=== PATIENT | female | born 1990 | race Caucasian/White ===

== ENCOUNTER 2019-12-26 10:17 | Outpatient (REF) | payer OTHER, SELFPAY ==
[2019-12-26 11:55] LABS: MANUAL DIFF FLAG NO
[2019-12-26 12:09] LABS: Basophils Percent Auto 0.5 % (0-2); Eosinophils Absolute Auto 0.3 X10*3/uL (0.0-0.4); Eosinophils Percent Auto 2.9 % (0-4); Hematocrit 42.3 % (37-47); Hemoglobin 13.1 g/dl (12.0-16.0); Imm Gran Abs Auto 0.04 X10*3/uL (0.00-0.03); Imm Gran Pct Auto 0.5 % (0.0-0.4); Lymphocytes Absolute Auto 2.7 X10*3/uL (1.2-4.9); Lymphocytes Percent Auto 30.5 % (20-40); Mean Corpuscular Hemoglobin 26.8 pg (27.0-33.0); Mean Corpuscular Volume 86.5 fL (80-98); Mean Platelet Volume 12.2 fL (9.4-12.3); Monocytes Absolute Auto 0.7 X10*3/uL (0.1-1.2); Monocytes Percent Auto 7.7 % (2-11); Neutrophils Absolute Auto 5.1 X10*3/uL (2.0-8.3); Neutrophils Percent Auto 57.9 % (45-73); Platelet Count 263 X10*3/uL (160-400); Red Blood Count 4.89 X10*6/uL (4.20-5.50); Red Cell Distribution Width 13.3 % (11.0-16.0); White Blood Count 8.7 X10*3/uL (4.8-10.8)
[2019-12-26 12:28] LABS: Estimated Average Glucose 105 mg/dL; Hemoglobin A1c % 5.3 %
[2019-12-26 12:46] LABS: Anion Gap 13 (12-20); Blood Urea Nitrogen 11 mg/dL (9-16); Calcium 8.9 mg/dL (8.4-10.2); Carbon Dioxide 26 mmol/L (22-29); Chloride 105 mmol/L (96-108); Cholesterol 145 mg/dL; Estimated Glomerular Filt Rate > 60; Glucose Fasting 97 mg/dL (60-99); HDL Cholesterol 44 mg/dL; LDL Cholesterol Calculated 68 mg/dl; Potassium 4.5 mmol/l (3.3-5.1); Sodium 139 mmol/L (135-145); Triglycerides 169 mg/dL
== END 2019-12-26 10:18 | disposition home or self-care (01) ==
LOC: HO.LAB 10:17
PROVIDERS: Visit Provider Nurse Practitioner Family
DX: Z00.00 Encounter for general adult medical examination without abnormal findings (principal)
CPT/HCPCS: 36415; 80048; 80061; 83036; 85025

== ENCOUNTER 2020-01-03 14:56 | Outpatient (REF) | payer OTHER, SELFPAY | END 2020-01-03 14:57 | disposition home or self-care (01) | LOC: HO.LAB 14:56 | PROVIDERS: Visit Provider Internal Medicine | DX: Z20.828 Contact with and (suspected) exposure to other viral communicable diseases (principal) | CPT/HCPCS: C9803; U0003 ==

== ENCOUNTER 2020-02-21 16:32 | Outpatient (REF) | payer OTHER, SELFPAY | END 2020-02-21 16:33 | disposition home or self-care (01) | LOC: HO.LAB 16:32 | PROVIDERS: PCP Nurse Practitioner Family; Visit Provider Internal Medicine | DX: Z20.828 Contact with and (suspected) exposure to other viral communicable diseases (principal) | CPT/HCPCS: C9803; U0003 ==

== ENCOUNTER 2020-04-04 12:32 | Outpatient (REF) | payer OTHER, SELFPAY | END 2020-04-04 12:33 | disposition home or self-care (01) | LOC: HO.LAB 12:32 | PROVIDERS: Visit Provider Internal Medicine | DX: Z20.822 Contact with and (suspected) exposure to COVID-19 (principal) | CPT/HCPCS: 36415; C9803; U0003; U0005 ==

== ENCOUNTER 2020-04-12 05:41 | Inpatient (IN) | payer OTHER, SELFPAY ==
[2020-04-12] VITALS (11 sets, daily range): BP systolic 100–139; BP diastolic 56–89; PULSE 95–114; RESP 17–91; TEMP 36.8–37.2; O2SAT 87–95; BMI 54.9
--- NOTE | ~2020-04-12 | XR_ITS ---
EXAMINATION: XR CHEST CLINICAL INFORMATION: Shortness of breath COMPARISON: 08/24/2019 TECHNIQUE: Frontal view of the chest was obtained. FINDINGS: Lung volumes are low. No consolidation, edema, or effusion. Bronchial wall thickening noted. No pneumothorax. The cardiomediastinal silhouette is within normal limits. XR/XR chest 1V IMPRESSION: No consolidation. Bronchial wall thickening can be seen with a small airways process such as asthma or atypical/viral infection.
--- NOTE | ~2020-04-12 | CT_ITS ---
EXAMINATION: CT ANGIOGRAM OF THE CHEST WITH AND WITHOUT CONTRAST (CT PULMONARY ANGIOGRAM FOR PE) CLINICAL INFORMATION: Reason for Exam dyspnea, hemoptysis, on OCPS elevated ddimer COMPARISON: Chest x-ray of same day TECHNIQUE: Prior to contrast administration, noncontrast localization images were obtained. Subsequently, multidetector volumetric imaging was performed from the thoracic inlet to below the diaphragms following the administration of 85 mL Omnipaque 350 intravenous contrast. No contrast reaction reported Sagittal, coronal, and MIP oblique sagittal reformatted images were obtained on the CT workstation, uploaded to PACS, and reviewed. This CT examination was performed using dose optimization techniques as appropriate, variously including the following: *Automated exposure control *Adjustment of mA and/or kV according to patient size (this includes techniques or standardized protocols for targeted exams where dose is matched to indication/reason for exam; i.e. extremities or head) *Use of iterative reconstruction technique Total exam dose-length product 591 mGy-cm FINDINGS: QUALITY OF STUDY/CONTRAST BOLUS: Satisfactory. Suboptimal study related to breathing artifact. PULMONARY ARTERIES: No definite central or segmental pulmonary emboli. THORACIC AORTA: No aneurysm or dissection. LUNG: There is diffuse multilobar groundglass disease present as well as bibasilar airspace disease. The basilar airspace disease may be related to atelectasis or possibly pneumonitis. The groundglass opacities may be related to diffuse interstitial pneumonitis such as Covid disease or possible pulmonary edema of cardiogenic or noncardiogenic etiology. PLEURA: No pleural effusion or pneumothorax. MEDIASTINUM: Thyroid gland unremarkable. Heart normal size. No pericardial effusion. No mediastinal lymphadenopathy appreciated. There appears to be mild bilateral hilar lymphadenopathy. No evidence of septal bowing or right heart strain. CHEST WALL/AXILLA: No axillary or internal mammary lymphadenopathy. OSSEOUS STRUCTURES: No acute or suspicious osseous abnormality. UPPER ABDOMEN: Unremarkable. No reflux of contrast into the hepatic veins to suggest elevated right heart pressures. CT/CT angio chest PE protocol IMPRESSION: No evidence of acute pulmonary artery embolus. No evidence of thoracic aortic aneurysm or dissection. Diffuse multilevel lobar interstitial disease with bibasilar airspace disease. Findings may be seen with Covid disease or other interstitial pneumonitis. Also within the differential diagnosis would be pulmonary edema of cardiogenic or noncardiogenic etiology. Mild bilateral hilar lymphadenopathy. VTE: negative
--- NOTE | 2020-04-12 06:07 | PC.NURSE ---
CXR at bedside. Pt ambulating to and from the bathroom to provide urine sample.
[2020-04-12 06:22] LABS: Hematocrit 43.8 % (37-47); Hemoglobin 13.8 g/dl (12.0-16.0); Imm Gran Abs Auto 0.01 X10*3/uL (0.00-0.03); Imm Gran Pct Auto 0.3 % (0.0-0.4); Lymphocytes Absolute Auto 1.3 X10*3/uL (1.2-4.9); Lymphocytes Percent Auto 42.2 % (20-40); Mean Corpuscular HGB Conc 31.5 g/dl (31.0-35.0); Mean Corpuscular Hemoglobin 26.8 pg (27.0-33.0); Mean Corpuscular Volume 85.2 fL (80-98); Mean Platelet Volume 11.9 fL (9.4-12.3); Monocytes Absolute Auto 0.3 X10*3/uL (0.1-1.2); Monocytes Percent Auto 10.1 % (2-11); Neutrophils Absolute Auto 1.4 X10*3/uL (2.0-8.3); Neutrophils Percent Auto 47.4 % (45-73); Platelet Count 144 X10*3/uL (160-400); Red Blood Count 5.14 X10*6/uL (4.20-5.50); Red Cell Distribution Width 13.3 % (11.0-16.0)
[2020-04-12 06:23] LABS: MANUAL DIFF FLAG NO
[2020-04-12 06:24] LABS: Appearance Urine HAZY; Color Urine AMBER; Glucose Urine UA NEG (NEG); Leukocyte Esterase Urine NEG (NEG); Nitrite Urine NEG (NEG); Specific Gravity - Urine 1.025 (1.005-1.025); Urine Blood TRACE (NEG); Urine Ketones NEG (NEG); Urine Protein 1+ MG/DL (NEG-TRACE)
[2020-04-12 06:26] LABS: UPreg QC Valid YES; Urine Pregnancy NEGATIVE (NEGATIVE)
[2020-04-12 06:31] LABS: Bacteria Urine 2+ /LPF; Mucus Urine 3+ /LPF; RBC Urine 0-2 /HPF (0); Squamous Epithelial Cell Urine 4+ /LPF
--- NOTE | 2020-04-12 06:36 | ED.SOB ---
HPI - SOB/Dyspnea General Chief Complaint: Dyspnea Stated Complaint: Covid+/ SOB Time Seen by Provider: 04/12/20 06:36 Source: patient Mode of arrival: ambulatory Limitations: no limitations History of Present Illness HPI Narrative: 30 yo female with asthma dx with COVID 8 days ago comes in with dyspnea and cough noted some scant streaks of blood has inhaler at home she is on OCPs MD elicited complaint: shortness of breath, cough and pain with inspiration Pertinent past history: asthma Onset (ago): day(s) (2) Context: recent illness Timing: intermittent Severity: moderate Exacerbating factors: exertion, coughing and inspiration Relieving factors: rest Known history of: asthma Associated symptoms: pain with inspiration, cough, wheezing and hemoptysis Treatment prior to arrival: bronchodilator Related Data Home Medications Medication Instructions Recorded Confirmed desogestrel 0.15 mg-ethinyl 1 tab PO DAILY 12/26/19 estradiol 0.03 mg tablet Previous Rx's Medication Instructions Recorded acetaminophen 325 mg capsule 650 mg PO Q6H PRN 10 Days #20 cap 04/11/20 albuterol sulfate 90 mcg/actuation 2 puff INHALATION Q6H PRN 30 Days 04/11/20 aerosol inhaler #6.7 g doxycycline hyclate 100 mg capsule 100 mg PO BID 10 Days #20 cap 04/11/20 Allergies Allergy/AdvReac Type Severity Reaction Status Date / Time penicillin V Allergy Unknown anaphylaxis Verified 04/12/20 05:57 Penicillins [PENICILLINS] Allergy Unknown Anaphylaxis Verified 04/12/20 05:57 Review of Systems Review of Systems: Constitutional : pos Fever, pos Chills ENT/Mouth : No sore throat, No Rhinorrhea, No Swallowing Difficulty Eyes: No Eye Pain, No Swelling, No Redness Cardiovascular : pos Chest Pain, positive SOB, No Orthopnea, no Edema Respiratory : pos Cough, pos Sputum, No Wheezing, positive dyspnea Gastrointestinal : No Nausea, No Vomiting, No Diarrhea, No abdominal Pain, No Hematochezia, No Melena Genitourinary : No Dysuria, No Urinary Frequency, No Hematuria Musculoskeletal : No joint pain, No Myalgias Skin : No Skin Lesions, No rash Neuro : No Weakness, No Numbness, No Dizziness, No Headache Psych : No Anxiety/Panic, No Depression Heme/Lymph: No Bruising, No Lymphadenopathy Endocrine : No Polyuria, No Polydipsia All other systems reviewed and are negative [facility] Past Medical History Attestation statement: The following information was validated with the patient. Medical History Asthma Surgical History No pertinent past surgical history Family History Family History (Updated 12/23/19 @ 07:54 by Katharine Andrade Cheryl) Father Medical history unknown Mother Hypertension Scoliosis Maternal Grandfather Stroke Diabetes Social History Social History Alcohol intake: never Smoking Status: Never smoker Advance Directives: No Physical Exam Vital Signs: Vital Signs: Last Vital Signs Temp 98.3 F 04/12/20 05:53 Pulse 102 H 04/12/20 09:49 Resp 20 04/12/20 05:48 BP 111/56 L 04/12/20 09:49 Pulse Ox 87 L 04/12/20 10:37 Body Mass Index 54.9 Appearance: Alert. Oriented X3. No acute distress. Eyes: Pupils equal, round and reactive to light. ENT: Pharynx normal. Neck: Normal inspection. Neck supple. CVS: tachycardic heart rate and rhythm. Pulses normal. Respiratory: No respiratory distress. Breath sounds decreased throughout with rhonchi noted and patient is splinting Abdomen: Soft and nontender. Skin: Skin warm and dry. Normal skin color. Normal skin turgor. Extremities: No lower extremity edema. No calf ttp Neuro: Oriented X 3. No motor deficit. No sensory deficit. Course Course Course Narrative: elevated ddimer - CTA PE ordered no PE at this time, but RA sat is 92% - will obtain ambulation trial to see if she becomes hypoxic. 87% on RA - up to 95% on 2L NC - will need admission MDM - SOB/Dyspnea MDM Narrative Medical decision making narrative: 30 yo female with asthma dx with COVID on 04/04 - here with cough, dyspnea and some hemoptysis - on OCPs will need labs, ddimer, CXR, neb and IV steroids r/o PE vs pneumonia dispo per results and findings patient appears winded in room with minimal movement will likely need ambulation trial Lab Data Result diagrams: 04/12/20 06:16 04/12/20 06:16 Labs: Lab Results 04/12/20 04/12/20 04/12/20 Range/Units 06:16 06:16 06:16 WBC 3.0 L (4.8-10.8) X10*3/uL RBC 5.14 (4.20-5.50) X10*6/uL Hgb 13.8 (12.0-16.0) g/dl Hct 43.8 (37-47) % MCV 85.2 (80-98) fL MCH 26.8 L (27.0-33.0) pg MCHC 31.5 (31.0-35.0) g/dl RDW 13.3 (11.0-16.0) % Plt Count 144 L D (160-400) X10*3/uL MPV 11.9 (9.4-12.3) fL Immature Gran % (Auto) 0.3 (0.0-0.4) % Neut % (Auto) 47.4 (45-73) % Lymph % (Auto) 42.2 H (20-40) % [place] % (Auto) 10.1 (2-11) % Eos % (Auto) 0.0 (0-4) % Baso % (Auto) 0.0 (0-2) % Lymph # (Auto) 1.3 (1.2-4.9) X10*3/uL [place] # (Auto) 0.3 (0.1-1.2) X10*3/uL Eos # (Auto) 0.0 (0.0-0.4) X10*3/uL Baso # (Auto) 0.0 (0.0-0.2) X10*3/uL Abs Immat Gran (auto) 0.01 (0.00-0.03) X10*3/uL Absolute Neuts (auto) 1.4 L (2.0-8.3) X10*3/uL Absolute Nucleated RBC 0.000 (0.0-0.012) X10*3/uL Nucleated RBC % (auto) 0.0 (0.0-0.2) /100WBC D-Dimer 337 NG/ML Hold Blue Top SEE NOTE Sodium 139 (135-145) mmol/L Potassium 4.0 (3.3-5.1) mmol/L Chloride 104 (96-108) mmol/L Carbon Dioxide 27 (22-29) mmol/L Anion Gap 12 (12-20) BUN 6 L (9-16) mg/dL Creatinine 0.69 (0.5-1.4) mg/dL Estim Creat Clear Calc 174.1 Estimated GFR > 60 Random Glucose 102 (60-115) mg/dL Calcium 8.1 L D (8.4-10.2) mg/dL Urine Color Urine Appearance Urine pH (5.0-8.0) Ur Specific [place] (1.005-1.025) Urine Protein (NEG-TRACE) MG/DL Urine Glucose (UA) (NEG) MG/DL Urine Ketones (NEG) MG/DL Urine Blood (NEG) Urine Nitrite (NEG) Ur Leukocyte Esterase (NEG) Urine RBC (0) /HPF Urine WBC (0-4) /HPF Ur Squamous Epith Cells /LPF Urine Bacteria /LPF Urine Mucus /LPF Urine Test (NEGATIVE) 04/12/20 Range/Units 06:16 WBC (4.8-10.8) X10*3/uL RBC (4.20-5.50) X10*6/uL Hgb (12.0-16.0) g/dl Hct (37-47) % MCV (80-98) fL MCH (27.0-33.0) pg MCHC (31.0-35.0) g/dl RDW (11.0-16.0) % Plt Count (160-400) X10*3/uL MPV (9.4-12.3) fL Immature Gran % (Auto) (0.0-0.4) % Neut % (Auto) (45-73) % Lymph % (Auto) (20-40) % [place] % (Auto) (2-11) % Eos % (Auto) (0-4) % Baso % (Auto) (0-2) % Lymph # (Auto) (1.2-4.9) X10*3/uL [place] # (Auto) (0.1-1.2) X10*3/uL Eos # (Auto) (0.0-0.4) X10*3/uL Baso # (Auto) (0.0-0.2) X10*3/uL Abs Immat Gran (auto) (0.00-0.03) X10*3/uL Absolute Neuts (auto) (2.0-8.3) X10*3/uL Absolute Nucleated RBC (0.0-0.012) X10*3/uL Nucleated RBC % (auto) (0.0-0.2) /100WBC D-Dimer NG/ML Hold Blue Top Sodium (135-145) mmol/L Potassium (3.3-5.1) mmol/L Chloride (96-108) mmol/L Carbon Dioxide (22-29) mmol/L Anion Gap (12-20) BUN (9-16) mg/dL Creatinine (0.5-1.4) mg/dL Estim Creat Clear Calc Estimated GFR Random Glucose (60-115) mg/dL Calcium (8.4-10.2) mg/dL Urine Color COLIN Urine Appearance HAZY Urine pH 6.0 (5.0-8.0) Ur Specific [place] 1.025 (1.005-1.025) Urine Protein 1+ H (NEG-TRACE) MG/DL Urine Glucose (UA) NEG (NEG) MG/DL Urine Ketones NEG (NEG) MG/DL Urine Blood TRACE (NEG) Urine Nitrite NEG (NEG) Ur Leukocyte Esterase NEG (NEG) Urine RBC 0-2 (0) /HPF Urine WBC 1-4 (0-4) /HPF Ur Squamous Epith Cells 4+ /LPF Urine Bacteria 2+ /LPF Urine Mucus 3+ /LPF Urine Test NEGATIVE (NEGATIVE) Discharge Plan Discharge Clinical Impression: Pneumonia due to 2019-nCoV, Hypoxia Patient Disposition: Admitted As Inpatient Prescriptions: No Action doxycycline hyclate 100 mg capsule 100 mg PO BID 10 Days Qty: 20 RF: 0 albuterol sulfate 90 mcg/actuation HFA aerosol inhaler 2 puff inhalation Q6H PRN (Reason: shortness of breath or wheezing) 30 Days Qty: 6.7 RF: 0 acetaminophen [Tylenol] 325 mg capsule 650 mg PO Q6H PRN (Reason: fever) 10 Days Qty: 20 RF: 0 desogestrel-ethinyl estradiol 0.15-0.03 mg tablet 1 tab PO DAILY RF: 0
[2020-04-12 06:52] LABS: Anion Gap 12 (12-20); Blood Urea Nitrogen 6 mg/dL (9-16); Calcium 8.1 mg/dL (8.4-10.2); Carbon Dioxide 27 mmol/L (22-29); Chloride 104 mmol/L (96-108); Creatinine Clr Calc Pharmacy 174.1; Estimated Glomerular Filt Rate > 60; Glucose Random 102 mg/dL (60-115); Sodium 139 mmol/L (135-145)
[2020-04-12 07:28] LABS: D Dimer 337 NG/ML
[2020-04-12] MEDS: methylPREDNISolone Sod Succ/PF 125 MG/2 ML VIAL 60 MG IVPUSH (07:49)
--- NOTE | 2020-04-12 07:50 | PC.NURSE ---
SEEN BY DR PATRICIA. 20 G R AC. MEDIATED WITH 60 MG SOLUMEDOL PER ORDERS. NAD. AWAITING UD BY RT
[2020-04-12] MEDS: Albuterol Sulfate (0.083%) 2.5 MG/3 ML VIAL.NEB INHALE (07:59)
[2020-04-12] MEDS: iohexoL 350 MG/ML 100 ML INFUS..BTL IV (09:04)
--- NOTE | 2020-04-12 09:49 | PC.NURSE ---
NAD. AWAITING CTA RESULTS. VITALS UPDATED
--- NOTE | 2020-04-12 10:31 | PC.NURSE ---
VERY POOR O2 SAT WHILE WALKING - MD AWARE. PLACED ON 2 LM.
--- NOTE | 2020-04-12 11:53 | PM.IMHP ---
History of Present Illness Date of Service: 04/12/20 Chief Complaint: Shortness of breath and cough 30 year old women presenting with continued shortness of breath and fever. She reports fever, cough and shortness of breath for 4 days. She had a positive covid test on 04/04 and has been home quarantining with her children who also have covid. She has a history of asthma and has had wheezing. She also had some scant blood streaks in her sputum. She denied chest pain, nausea, vomiting, diarrhea. In the ED, Patient was noted to be hypoxic at 87% on RA. All of her labs were within acceptable limits. Chest CTA showed no evidence of acute pulmonary artery embolus. Diffuse multilevel lobar interstitial disease with bibasilar airspace disease. She was given Albuterol and solumedrol. She maryanne be admitted for further management of acute hypoxic respiratory failure. Review of Systems Review of Systems: Denies any recent fever chills or decrease in appetite respiratory See HPI cardiovascular no chest pain gastrointestinal denies any dysphagia abdominal pain nausea vomiting or diarrhea genitourinary denies any dysuria frequency or hematuria musculoskeletal denies any joint pain or swelling neuropsych denies any weakness or seizures all other systems reviewed are negative [facility] Medical History Asthma Family History (Updated 12/23/19 @ 07:54 by Katharine Andrade Cheryl) Father Medical history unknown Mother Hypertension Scoliosis Maternal Grandfather Stroke Diabetes Surgical History No pertinent past surgical history Social History Alcohol intake: never Smoking Status: Never smoker Advance Directives: No Meds Allergies Allergy/AdvReac Type Severity Reaction Status Date / Time penicillin V Allergy Unknown anaphylaxis Verified 04/12/20 05:57 Penicillins [PENICILLINS] Allergy Unknown Anaphylaxis Verified 04/12/20 05:57 Active Medications: Current Medications Generic Name Dose Route Start Last Admin Trade Name Freq PRN Reason Stop Dose Admin Pharmacy Consult 1 each 04/12/20 11:00 Consult Rx Perform Med Rec MISCELLANE ONCE PRN Consult order Home Medications Medication Instructions Recorded Confirmed Last Taken Type albuterol sulfate 1 puff INHALATION QID PRN 04/12/20 04/12/20 Unknown History desogestrel-ethinyl estradiol 1 tab PO DAILY 04/12/20 04/12/20 Unknown History [Apri] fluticasone propionate [Flonase] 1 spray INTRANASAL DAILY 04/12/20 04/12/20 Unknown History Physical Exam Vital Signs and Narrative: Vital Signs: Last Vital Signs Temp 98.3 F 04/12/20 05:53 Pulse 102 H 04/12/20 09:49 Resp 20 04/12/20 05:48 BP 111/56 L 04/12/20 09:49 Pulse Ox 87 L 04/12/20 10:37 Body Mass Index 54.9 Appearing in no acute distress head is normocephalic atraumatic eyes pupils are PERRLA sclera is anicteric mouth throat mucous membranes are intact and moist neck is supple no lymphadenopathy, no JVD noted lung sounds normal expansion heart regular rate rhythm positive bowel sounds, abdomen nontender neuro patient is alert x3, no focal deficits Results Labs CBC and Chem 7: 04/12/20 06:16 04/12/20 06:16 Labs: Laboratory Results - last 24 hr 04/12/20 04/12/20 04/12/20 06:16 06:16 06:16 MCV 85.2 MCH 26.8 L MCHC 31.5 RDW 13.3 Plt Count 144 L D MPV 11.9 Immature Gran % (Auto) 0.3 Neut % (Auto) 47.4 Lymph % (Auto) 42.2 H [place] % (Auto) 10.1 Eos % (Auto) 0.0 Baso % (Auto) 0.0 Lymph # (Auto) 1.3 [place] # (Auto) 0.3 Eos # (Auto) 0.0 Baso # (Auto) 0.0 Abs Immat Gran (auto) 0.01 Absolute Neuts (auto) 1.4 L Absolute Nucleated RBC 0.000 Nucleated RBC % (auto) 0.0 D-Dimer 337 Hold Blue Top SEE NOTE Anion Gap 12 Estim Creat Clear Calc 174.1 Estimated GFR > 60 Random Glucose 102 Calcium 8.1 L D Urine Color Urine Appearance Urine pH Ur Specific [place] Urine Protein Urine Glucose (UA) Urine Ketones Urine Blood Urine Nitrite Ur Leukocyte Esterase Urine RBC Urine WBC Ur Squamous Epith Cells Urine Bacteria Urine Mucus Urine Test 04/12/20 06:16 MCV MCH MCHC RDW Plt Count MPV Immature Gran % (Auto) Neut % (Auto) Lymph % (Auto) [place] % (Auto) Eos % (Auto) Baso % (Auto) Lymph # (Auto) [place] # (Auto) Eos # (Auto) Baso # (Auto) Abs Immat Gran (auto) Absolute Neuts (auto) Absolute Nucleated RBC Nucleated RBC % (auto) D-Dimer Hold Blue Top Anion Gap Estim Creat Clear Calc Estimated GFR Random Glucose Calcium Urine Color COLIN Urine Appearance HAZY Urine pH 6.0 Ur Specific [place] 1.025 Urine Protein 1+ H Urine Glucose (UA) NEG Urine Ketones NEG Urine Blood TRACE Urine Nitrite NEG Ur Leukocyte Esterase NEG Urine RBC 0-2 Urine WBC 1-4 Ur Squamous Epith Cells 4+ Urine Bacteria 2+ Urine Mucus 3+ Urine Test NEGATIVE Imaging Radiologist's Impressions: Impressions Chest X-Ray 04/12/20 05:54 IMPRESSION: No consolidation. Bronchial wall thickening can be seen with a small airways process such as asthma or atypical/viral infection. Chest CTA 04/12/20 07:35 IMPRESSION: No evidence of acute pulmonary artery embolus. No evidence of thoracic aortic aneurysm or dissection. Diffuse multilevel lobar interstitial disease with bibasilar airspace disease. Findings may be seen with Covid disease or other interstitial pneumonitis. Also within the differential diagnosis would be pulmonary edema of cardiogenic or noncardiogenic etiology. Mild bilateral hilar lymphadenopathy. VTE: negative Assessment and Plan (1) Pneumonia due to 2019-nCoV: Status: Acute 30 year old women admitted with acute hypoxic respiratory failure secondary to covid-19 Acute hypoxic respiratory failure secondary to covid-19. Asthma. Continue Albuterol as needed. Obesity. BMI 54.9, likely contributing to worsening symptoms. DVT prophylaxis with Lovenox. Discussed with Dr. Brewer Full code
--- NOTE | 2020-04-12 16:07 | PM.EVENT ---
Event Note Date of Service: 04/12/20 Event Note: admission note the patient was seen and evaluated with Xuan Boyer NP. I agree with her note, assessment and plan with the following. In summary, a 30 years old female with PMH of morbid obesity, asthma who presents to the hospital complaining of shortness of breath, fever and cough for the last 4 days. She was tested positive for COVID on the 04 of April . She was noted to have hypoxemia on room air in the emergency with O2 of 87%. CTA negative for any acute other findings. Admitted for further evaluation and treatment. Acute hypoxic respiratory failure COVID-19 infection Oxygen supplement, to wean down as tolerated Start dexamethasone IV To get ID evaluation for possible need of remdesivir Continue inhalers as needed Morbid obesity Likely contributing to her overall sickness, advised to lose weight. Rest of evaluations by [employer] SUPERVISOR note.
--- NOTE | 2020-04-12 17:32 | PC.NURSE ---
RESTING IN NAD. AWAITING BED IN HOSP FOR COVID HYPOXIA. ATE LUNCH, AMBULATES TO BR W/O PROBLEMS
--- NOTE | 2020-04-12 21:09 | PC.NURSE ---
Pt ambulated to bathroom with steady gait, returned to room, placed on monitor. Pt NSR on cardiac monitor technician, O2 sat 93% on 2LNC as documented. Pt denies complaints at this time. Stretcher low locked, rails raised, call allen within reach. Pt comfort measures met at this time.
[2020-04-12] MEDS: 0.9 % Sodium Chloride Flush 3 ML SYRINGE IVFLUSH (21:10)
[2020-04-13] VITALS (11 sets, daily range): BP systolic 107–141; BP diastolic 58–86; PULSE 75–96; RESP 18–26; TEMP 36.3–37.1; O2SAT 88–95
--- NOTE | 2020-04-13 01:04 | PC.NURSE ---
Pt resting on stretcher in NAD, breathing with ease on 2LNC. Pt reports continued intermittent cough but denies other complaints at this time. Pt remains NSR on street light inspector. Stretcher low locked, rails raised, call allen within reach. Pt comfort measures met at this time.
[2020-04-13] MEDS: 0.9 % Sodium Chloride Flush 3 ML SYRINGE IVFLUSH ×3 (01:05→20:34)
[2020-04-13 06:33] LABS: MANUAL DIFF FLAG NO
[2020-04-13 06:35] LABS: Hematocrit 42.1 % (37-47); Hemoglobin 13.5 g/dl (12.0-16.0); Imm Gran Abs Auto 0.01 X10*3/uL (0.00-0.03); Imm Gran Pct Auto 0.3 % (0.0-0.4); Lymphocytes Absolute Auto 1.6 X10*3/uL (1.2-4.9); Lymphocytes Percent Auto 41.4 % (20-40); Mean Corpuscular HGB Conc 32.1 g/dl (31.0-35.0); Mean Corpuscular Hemoglobin 26.9 pg (27.0-33.0); Monocytes Absolute Auto 0.5 X10*3/uL (0.1-1.2); Monocytes Percent Auto 13.4 % (2-11); Neutrophils Absolute Auto 1.7 X10*3/uL (2.0-8.3); Neutrophils Percent Auto 44.9 % (45-73); Platelet Count 168 X10*3/uL (160-400); Red Blood Count 5.01 X10*6/uL (4.20-5.50); Red Cell Distribution Width 13.2 % (11.0-16.0); White Blood Count 3.8 X10*3/uL (4.8-10.8)
--- NOTE | 2020-04-13 06:52 | PC.NURSE ---
Report given to SERINA Mo and care transferred at this time
[2020-04-13 07:02] LABS: Anion Gap 14 (12-20); Blood Urea Nitrogen 8 mg/dL (9-16); Calcium 8.4 mg/dL (8.4-10.2); Carbon Dioxide 25 mmol/L (22-29); Chloride 105 mmol/L (96-108); Creatinine Clr Calc Pharmacy 196.9; Estimated Glomerular Filt Rate > 60; Glucose Random 107 mg/dL (60-115); Potassium 3.8 mmol/L (3.3-5.1); Sodium 140 mmol/L (135-145)
[2020-04-13] MEDS: dexAMETHasone sod phosphate 4 MG/ML VIAL 6 MG IVPUSH (09:03)
[2020-04-13] MEDS: Fluticasone Propionate Nasal 16 GM SPRAY 1 SPRAY NOSTRIL-B (10:54)
--- NOTE | 2020-04-13 10:56 | PC.NURSE ---
attempted to take patient off o2. sat dropped to 88%. placed back on 2l.
--- NOTE | 2020-04-13 13:02 | P.PNIM_ITS ---
Subjective Subjective Date of Service: 04/13/20 Interval History: The patient was seen and evaluated this morning Laying in bed, feels better but still short of breath and requring oxygen s upplement Denies any fever, chills or chest pain No reported other overnight events. Systemic review: No fever, chills or weakness No chest pain, palpitation exertional shortness of breath or coughing No abdominal pain, nausea or vomiting No urinary symptoms No any rash or wounds Physical Exam Vital Signs: Vital Signs: Last Vital Signs Temp 98.3 F 04/13/20 07:30 Pulse 92 04/13/20 07:30 Resp 22 H 04/13/20 07:30 BP 141/86 H 04/13/20 07:30 Pulse Ox 92 04/13/20 10:57 Body Mass Index 54.9 Const: Other: Constitutional : Alert, oriented, not in distress Neck : Normal inspection, Supple Cardiovascular : RRR, S1 S2, no lower extremity edema Respiratory : bilateral chest wall movements, scattered wheezes, fair air entry bilaterally Gastrointestinal: soft, lax, Normal bowel sounds, Non tender Skin : Warm/Dry, No rash Neurological : Alert & oriented x3, No focal deficit Objective Data Current Medications Generic Name Dose Route Start Last Admin Trade Name Freq PRN Reason Stop Dose Admin Acetaminophen 650 mg 04/12/20 12:24 Acetaminophen 325 Mg Tablet PO Q6H PRN Pain, Mild (Pain Scale 1-3) Albuterol Sulfate 1 puff 04/12/20 12:24 Albuterol Sulfate 90 Mcg 8 Gm Inhaler INHALE QID PRN shortness of breath or wheezing Dexamethasone Sodium Phosphate 6 mg 04/13/20 09:00 04/13/20 09:03 Dexamethasone Sod Phosphate 4 Mg/Ml Vial IVPUSH 6 mg DAILY HAROON Administration Fluticasone Propionate 1 spray 04/13/20 09:00 04/13/20 10:54 Fluticasone Propionate Nasal 16 Gm [place] NOSTRIL-B 1 spray DAILY HAROON Administration Non-Formulary Medication 1 tab 04/13/20 09:00 Desogestrel-Ethinyl Estradiol [Apri] PO DAILY [facility] Ondansetron HCl 4 mg 04/12/20 12:24 Ondansetron Hcl 4 Mg/2 Ml Vial IVPUSH Q8H PRN Nausea and Vomiting Pharmacy Consult 1 each 04/12/20 11:00 Consult Rx Perform Med Rec MISCELLANE ONCE PRN Consult order Sodium Chloride 3 ml 04/12/20 16:00 04/13/20 07:29 0.9 % Sodium Chloride Flush 3 Ml Syringe IVFLUSH 3 ml QSHIFT [facility] Administration Labs CBC & Chem 7: 04/13/20 06:27 04/13/20 06:27 Assessment and Plan (1) Pneumonia due to 2019-nCoV: Status: Acute Assessment and Plan: 30 y (2) Acute respiratory failure with hypoxia: Status: Acute Assessment and Plan: a 30 years old female with PMH of morbid obesity, asthma who presents to the hospital complaining of shortness of breath, fever and cough for the last 4 days. She was tested positive for COVID on the 04 of April . She was noted to have hypoxemia on room air in the emergency with O2 of 87%. CTA negative for any acute other findings. Admitted for further evaluation and treatment. Acute hypoxic respiratory failure COVID-19 infection Oxygen supplement, to wean down as tolerated continue dexamethasone IV Pending ID evaluation for possible need of remdesivir Continue inhalers as needed Morbid obesity Likely contributing to her overall sickness, advised to lose weight. Asthma exacerbation improved, On steroid To use inhalors meanwhile as needed DVT prophylaxis with Lovenox.
--- NOTE | 2020-04-13 15:52 | W.PM.IDCN ---
History of Present Illness Data of Consult Service Date: 04/13/20 Requesting physician: Joey Brewer Primary Care Provider: Unknown Physician HPI Reason for consult: shortness of breath She has one week of fatigue and weakness She has cough as well Her whole family including 8 year old,8 month old and two year old have COVID She has COVID and is on 2l oxygen Review of Systems Review of Systems: Yes all other systems are reviewed and are negative [facility] Past Medical History Medical History Asthma Family History Family History Father Medical history unknown Mother Hypertension Scoliosis Maternal Grandfather Stroke Diabetes Surgical History Surgical History No pertinent past surgical history Social History Social History Household Members: Family Housing: Apartment Alcohol intake: never Smoking Status: Never smoker service: No Current occupational status: unemployed Meds Allergies Allergy/AdvReac Type Severity Reaction Status Date / Time penicillin V Allergy Unknown anaphylaxis Verified 04/12/20 05:57 Penicillins [PENICILLINS] Allergy Unknown Anaphylaxis Verified 04/12/20 05:57 Active Medications: Current Medications Generic Name Dose Route Start Last Admin Trade Name Freq PRN Reason Stop Dose Admin Acetaminophen 650 mg 04/12/20 12:24 Acetaminophen 325 Mg Tablet PO Q6H PRN Pain, Mild (Pain Scale 1-3) Albuterol Sulfate 1 puff 04/12/20 12:24 Albuterol Sulfate 90 Mcg 8 Gm Inhaler INHALE QID PRN shortness of breath or wheezing Dexamethasone Sodium Phosphate 6 mg 04/13/20 09:00 04/13/20 09:03 Dexamethasone Sod Phosphate 4 Mg/Ml Vial IVPUSH 6 mg DAILY HAROON Administration Fluticasone Propionate 1 spray 04/13/20 09:00 04/13/20 10:54 Fluticasone Propionate Nasal 16 Gm [place] NOSTRIL-B 1 spray DAILY HAROON Administration Non-Formulary Medication 1 tab 04/13/20 09:00 Desogestrel-Ethinyl Estradiol [Apri] PO DAILY HAROON Ondansetron HCl 4 mg 04/12/20 12:24 Ondansetron Hcl 4 Mg/2 Ml Vial IVPUSH Q8H PRN Nausea and Vomiting Pharmacy Consult 1 each 04/12/20 11:00 Consult Rx Perform Med Rec MISCELLANE ONCE PRN Consult order Sodium Chloride 3 ml 04/12/20 16:00 04/13/20 07:29 0.9 % Sodium Chloride Flush 3 Ml Syringe IVFLUSH 3 ml QSHIFT [facility] Administration Home Medications Medication Instructions Recorded Confirmed Last Taken Type albuterol sulfate 1 puff INHALATION QID PRN 04/12/20 04/12/20 Unknown History desogestrel-ethinyl estradiol 1 tab PO DAILY 04/12/20 04/12/20 Unknown History [Apri] fluticasone propionate 1 spray INTRANASAL DAILY 04/12/20 04/12/20 Unknown History Physical Exam Vital Signs: Vital Signs: Last Vital Signs Temp 98.3 F 04/13/20 07:30 Pulse 92 04/13/20 07:30 Resp 22 H 04/13/20 07:30 BP 141/86 H 04/13/20 07:30 Pulse Ox 92 04/13/20 10:57 Body Mass Index 54.9 Const: General: ill appearing Orientation/consciousness: patient oriented x3 HENMT: Head: Yes normal to inspection Mouth: Normal oral and palatal mucosa present Resp: Effort & Inspection: decreased respiratory effort Cardio: Rate: regular rate Rhythm: regular rhythm GI: Palpation (GI): Soft to palpation and nontender : General: Yes no CVA tenderness Back/Spine/Pelvis: Back: no CVA tenderness Skin: General skin exam: no rashes or lesions noted Neuro: General: patient oriented x3 Extrem: General: Yes normal to inspection Results Labs CBC & Chem 7: 04/13/20 06:27 04/14/20 05:42 Labs: Short CBC 04/13/20 Range/Units 06:27 WBC 3.8 L (4.8-10.8) X10*3/uL Hgb 13.5 (12.0-16.0) g/dl Hct 42.1 (37-47) % Plt Count 168 (160-400) X10*3/uL [facility] 04/13/20 06:27 Sodium 140 Potassium 3.8 Chloride 105 Carbon Dioxide 25 BUN 8 L Creatinine 0.61 Calcium 8.4 Assessment and Plan (1) Acute respiratory failure with hypoxia: Problem details: She has COVID She has hypoxia Status: Acute Would give Remdesivir Dexamethasone Oxygen support
[2020-04-13 17:28] LABS: Alanine Aminotransferase 125 U/L (0-31); Albumin Level 3.7 g/dL (3.5-5.0); Alkaline Phosphatase 56 U/L (39-117); Aspartate Amino Transferase 56 U/L (5-31); Bilirubin Direct 0.2 mg/dL (0.0-0.5); Bilirubin Total 0.4 mg/dL (0.0-1.0); Total Protein 7.2 g/dL (6.5-8.0)
[2020-04-13] MEDS: Remdesivir 200 MG in 0.9 % Sodium Chloride 210 ML 105 MG IV (20:45)
[2020-04-14 03:14] VITALS: BP 164/66; PULSE 82; RESP 18; TEMP 36.5; O2SAT 92
[2020-04-14 07:19] LABS: Alanine Aminotransferase 125 U/L (0-31); Albumin Level 3.5 g/dL (3.5-5.0); Alkaline Phosphatase 48 U/L (39-117); Anion Gap 14 (12-20); Aspartate Amino Transferase 55 U/L (5-31); Bilirubin Direct 0.2 mg/dL (0.0-0.5); Bilirubin Total 0.5 mg/dL (0.0-1.0); Blood Urea Nitrogen 12 mg/dL (9-16); Calcium 8.3 mg/dL (8.4-10.2); Carbon Dioxide 23 mmol/L (22-29); Chloride 108 mmol/L (96-108); Creatinine Clr Calc Pharmacy 196.9; Estimated Glomerular Filt Rate > 60; Glucose Random 85 mg/dL (60-115); Potassium 3.8 mmol/L (3.3-5.1); Sodium 141 mmol/L (135-145); Total Protein 6.7 g/dL (6.5-8.0)
[2020-04-14 08:00] VITALS: BP 125/78; PULSE 76; RESP 20; TEMP 36.4; O2SAT 94
--- NOTE | 2020-04-14 09:29 | MHC.CM.PN ---
CM met with Patient at bedside. Patient lives in an apartment with her and 3 children, ages 2 & 8 years, & 8 months. Patient is functionally independent and her goal for dc is to return home. CM has initiated and will follow for dc planning. PCP is at [address] [place] [address] in [place].
[2020-04-14] MEDS: Fluticasone Propionate Nasal 16 GM SPRAY 1 SPRAY NOSTRIL-B (10:04)
[2020-04-14] MEDS: 0.9 % Sodium Chloride Flush 3 ML SYRINGE IVFLUSH ×3 (10:04→22:43)
[2020-04-14] MEDS: dexAMETHasone sod phosphate 4 MG/ML VIAL 6 MG IVPUSH (10:04)
[2020-04-14] MEDS: Acetaminophen 325 MG TABLET 650 MG PO (10:09)
[2020-04-14 12:00] VITALS: BP 115/70; PULSE 83; RESP 20; TEMP 36.3; O2SAT 95
--- NOTE | 2020-04-14 14:01 | P.PNIM_ITS ---
Subjective Subjective Date of Service: 04/14/20 Interval History: Seen in f/u for covid related acute hypoxia that is getting better Review of Systems Gen: no fever Resp: no sob, no cough CV: no chest, no JHA, no leg edema GI: No n/v, no abd pain Neuro: No confusion Physical Exam Vital Signs: Vital Signs: Last Vital Signs Temp 97.3 F 04/14/20 12:00 Pulse 83 04/14/20 12:00 Resp 20 04/14/20 12:00 BP 115/70 04/14/20 12:00 Pulse Ox 95 04/14/20 12:00 Body Mass Index 54.9 Const: Other: Constitutional : Alert, oriented, not in distress Neck : Normal inspection, Supple Cardiovascular : RRR, S1 S2, no lower extremity edema Respiratory : bilateral chest wall movements, scattered wheezes, fair air entry bilaterally Gastrointestinal: soft, lax, Normal bowel sounds, Non tender Skin : Warm/Dry, No rash Neurological : Alert & oriented x3, No focal deficit Objective Data Current Medications Generic Name Dose Route Start Last Admin Trade Name Russellq PRN Reason Stop Dose Admin Acetaminophen 650 mg 04/12/20 12:24 04/14/20 10:09 Acetaminophen 325 Mg Tablet PO 650 mg Q6H PRN Administration Pain, Mild (Pain Scale 1-3) Albuterol Sulfate 1 puff 04/12/20 12:24 Albuterol Sulfate 90 Mcg 8 Gm Inhaler INHALE QID PRN shortness of breath or wheezing Dexamethasone Sodium Phosphate 6 mg 04/13/20 09:00 04/14/20 10:04 Dexamethasone Sod Phosphate 4 Mg/Ml Vial IVPUSH 6 mg DAILY HAROON Administration Fluticasone Propionate 1 spray 04/13/20 09:00 04/14/20 10:04 Fluticasone Propionate Nasal 16 Gm [place] NOSTRIL-B 1 spray DAILY HAROON Administration Remdesivir 100 mg/ Sodium 230 mls @ 115 mls/hr 04/14/20 20:00 Chloride IV 04/17/20 21:59 Q24H HAROON Ondansetron HCl 4 mg 04/12/20 12:24 Ondansetron Hcl 4 Mg/2 Ml Vial IVPUSH Q8H PRN Nausea and Vomiting Pharmacy Consult 1 each 04/12/20 11:00 Consult Rx Perform Med Rec MISCELLANE ONCE PRN Consult order Sodium Chloride 3 ml 04/12/20 16:00 04/14/20 10:04 0.9 % Sodium Chloride Flush 3 Ml Syringe IVFLUSH 3 ml QSHIFT HAROON Administration Labs CBC & Chem 7: 04/13/20 06:27 04/14/20 05:42 Assessment and Plan (1) Pneumonia due to 2019-nCoV: Status: Acute Assessment and Plan: 30 y (2) Acute respiratory failure with hypoxia: Problem details: She has COVID She has hypoxia Status: Acute Assessment and Plan: 30 years old female with PMH of morbid obesity, asthma who presents to the hospital complaining of shortness of breath, fever and cough for the last 4 days. She was tested positive for COVID on the 04 of April . She was noted to have hypoxemia on room air in the emergency with O2 of 87%. CTA negative for any acute other findings. Admitted for further evaluation and treatment. Acute hypoxic respiratory failure COVID-19 infection Oxygen supplement, to wean down as tolerated continue dexamethasone IV Remdesevir D2/5 Continue inhalers as needed Morbid obesity Likely contributing to her overall sickness, advised to lose weight. Asthma exacerbation improved, On steroid To use inhalors meanwhile as needed DVT prophylaxis with Lovenox.
[2020-04-14 15:42] VITALS: BP 110/66; PULSE 74; RESP 16; TEMP 36.1; O2SAT 95
[2020-04-14 19:26] VITALS: BP 120/74; PULSE 70; RESP 18; TEMP 36; O2SAT 95
[2020-04-14] MEDS: Remdesivir 100 MG in 0.9 % Sodium Chloride 230 ML 115 MG IV (19:58)
[2020-04-14 23:43] VITALS: BP 134/81; PULSE 58; RESP 18; TEMP 36.9; O2SAT 98
[2020-04-15 03:58] VITALS: BP 130/72; PULSE 65; RESP 18; TEMP 36.4; O2SAT 94
[2020-04-15 08:00] VITALS: BP 118/72; PULSE 78; RESP 17; TEMP 36.6; O2SAT 98
[2020-04-15] MEDS: 0.9 % Sodium Chloride Flush 3 ML SYRINGE IVFLUSH ×2 (09:20→17:27)
[2020-04-15] MEDS: dexAMETHasone sod phosphate 4 MG/ML VIAL 6 MG IVPUSH (09:20)
[2020-04-15] MEDS: Fluticasone Propionate Nasal 16 GM SPRAY 1 SPRAY NOSTRIL-B (09:21)
--- NOTE | 2020-04-15 11:08 | HO.PM.IMPN ---
Subjective Subjective Date of Service: 04/15/20 Interval History: Seen in f/u for covid hypoxia, doing well. O2 98 on 2 liters, no fever, no cough Review of Systems Gen: no fever Resp: no sob, no cough CV: no chest, no JHA, no leg edema GI: No n/v, no abd pain Neuro: No confusion Physical Exam Vital Signs: Vital Signs: Last Vital Signs Temp 97.9 F 04/15/20 08:00 Pulse 78 04/15/20 08:00 Resp 17 04/15/20 08:00 BP 118/72 04/15/20 08:00 Pulse Ox 98 04/15/20 08:00 Body Mass Index 54.9 Const: Other: Constitutional : Alert, oriented, not in distress Neck : Normal inspection, Supple Cardiovascular : RRR, S1 S2, no lower extremity edema Respiratory : bilateral chest wall movements, scattered wheezes, fair air entry bilaterally Gastrointestinal: soft, lax, Normal bowel sounds, Non tender Skin : Warm/Dry, No rash Neurological : Alert & oriented x3, No focal deficit Objective Data Current Medications Generic Name Dose Route Start Last Admin Trade Name Freq PRN Reason Stop Dose Admin Acetaminophen 650 mg 04/12/20 12:24 04/14/20 10:09 Acetaminophen 325 Mg Tablet PO 650 mg Q6H PRN Administration Pain, Mild (Pain Scale 1-3) Albuterol Sulfate 1 puff 04/12/20 12:24 Albuterol Sulfate 90 Mcg 8 Gm Inhaler INHALE QID PRN shortness of breath or wheezing Dexamethasone Sodium Phosphate 6 mg 04/13/20 09:00 04/15/20 09:20 Dexamethasone Sod Phosphate 4 Mg/Ml Vial IVPUSH 6 mg DAILY HAROON Administration Fluticasone Propionate 1 spray 04/13/20 09:00 04/15/20 09:21 Fluticasone Propionate Nasal 16 Gm [place] NOSTRIL-B 1 spray DAILY HAROON Administration Remdesivir 100 mg/ Sodium 230 mls @ 115 mls/hr 04/14/20 20:00 04/14/20 22:25 Chloride IV 04/17/20 21:59 Infused Q24H HAROON Infusion Ondansetron HCl 4 mg 04/12/20 12:24 Ondansetron Hcl 4 Mg/2 Ml Vial IVPUSH Q8H PRN Nausea and Vomiting Pharmacy Consult 1 each 04/12/20 11:00 Consult Rx Perform Med Rec MISCELLANE ONCE PRN Consult order Sodium Chloride 3 ml 04/12/20 16:00 04/15/20 09:20 0.9 % Sodium Chloride Flush 3 Ml Syringe IVFLUSH 3 ml QSHIFT [facility]ON Administration Labs CBC & Chem 7: 04/13/20 06:27 04/14/20 05:42 Assessment and Plan (1) Pneumonia due to 2019-nCoV: Status: Acute Assessment and Plan: 30 y (2) Acute respiratory failure with hypoxia: Problem details: She has COVID She has hypoxia Status: Acute Assessment and Plan: 30 years old female with PMH of morbid obesity, asthma who presents to the hospital complaining of shortness of breath, fever and cough for the last 4 days. She was tested positive for COVID on the 04 of April . She was noted to have hypoxemia on room air in the emergency with O2 of 87%. CTA negative for any acute other findings. Admitted for further evaluation and treatment. Acute hypoxic respiratory failure COVID-19 infection Oxygen supplement, wean O2 continue dexamethasone IV Remdesevir D3/5 Continue inhalers as needed Morbid obesity Likely contributing to her overall sickness, advised to lose weight. Asthma exacerbation improved, On steroid To use inhalors meanwhile as needed DVT prophylaxis with Lovenox.
[2020-04-15 11:28] VITALS: BP 131/73; PULSE 74; RESP 18; TEMP 36.6; O2SAT 95
[2020-04-15 15:30] VITALS: BP 114/58; PULSE 73; RESP 18; TEMP 36.6; O2SAT 96
[2020-04-15 17:27] VITALS: PULSE 71; O2SAT 95
[2020-04-15 19:10] VITALS: BP 113/62; PULSE 68; RESP 20; TEMP 36.9; O2SAT 95
[2020-04-15] MEDS: Remdesivir 100 MG in 0.9 % Sodium Chloride 230 ML 115 MG IV (20:25)
[2020-04-16] VITALS: BP 128/67; PULSE 52; RESP 18; TEMP 36.6; O2SAT 94
[2020-04-16] MEDS: 0.9 % Sodium Chloride Flush 3 ML SYRINGE IVFLUSH ×2 (00:49→09:27)
[2020-04-16 04:00] VITALS: BP 111/61; PULSE 62; RESP 18; TEMP 36.6; O2SAT 94
[2020-04-16 08:00] VITALS: BP 137/65; PULSE 74; RESP 20; TEMP 36.6; O2SAT 94
[2020-04-16] MEDS: Fluticasone Propionate Nasal 16 GM SPRAY 1 SPRAY NOSTRIL-B (09:27)
[2020-04-16] MEDS: dexAMETHasone sod phosphate 4 MG/ML VIAL 6 MG IVPUSH (09:27)
--- NOTE | 2020-04-16 10:52 | PM.DS ---
DS: Providers Provider Date of Service: 04/16/20 Date of admission: 04/12/20 12:24 Primary care physician: Unknown Physician Consults: 04/12/20 12:33 Consult to Infectious Diseases Routine Consulting Provider: Shante Bangura Reason for consultation: covid, hypoxia Has provider been notified: No DS: Diagnosis Discharge Diagnosis (1) Pneumonia due to 2019-nCoV: Status: Acute (2) Acute respiratory failure with hypoxia: Status: Acute Problem details: She has COVID She has hypoxia (3) Morbid obesity: Status: Acute (4) GERD (gastroesophageal reflux disease): Status: Acute DS: Medications Discharge Medications Home Medications: Home Medications Medication Instructions Recorded Confirmed albuterol sulfate 1 puff INHALATION QID PRN 04/12/20 04/12/20 desogestrel-ethinyl estradiol 1 tab PO DAILY 04/12/20 04/12/20 [Apri] fluticasone propionate 1 spray INTRANASAL DAILY 04/12/20 04/12/20 Previous Rx's Medication Instructions Recorded dexamethasone 6 mg PO DAILY #5 tab 04/16/20 DS: Summary Hospital Course Hospital Course: Admission note HPI 30 year old women presenting with continued shortness of breath and fever. She reports fever, cough and shortness of breath for 4 days. She had a positive covid test on 04/04 and has been home quarantining with her children who also have covid. She has a history of asthma and has had wheezing. She also had some scant blood streaks in her sputum. She denied chest pain, nausea, vomiting, diarrhea. In the ED, Patient was noted to be hypoxic at 87% on RA. All of her labs were within acceptable limits. Chest CTA showed no evidence of acute pulmonary artery embolus. Diffuse multilevel lobar interstitial disease with bibasilar airspace disease. She was given Albuterol and solumedrol. She maryanne be admitted for further management of acute hypoxic respiratory failure. Hospital course For treatment of acute hypoxic respiratory failure secondary to COVID-19 infection. Treated with IV dexamethasone, oxygen supplement and started on remdesivir after infectious disease evaluation. The patient improved significantly during the hospital stay and was weaned off the oxygen and able to ambulate on room air. To be discharged on dexamethasone for 5 more days. Time Spent with Patient Time attestation: Total time spent providing and/or coordinating discharge services: Discharge coordination time: Greater than 30 minutes Physical Exam Vital Signs: Vital Signs: Last Vital Signs Temp 97.9 F 04/16/20 08:00 Pulse 74 04/16/20 08:00 Resp 20 04/16/20 08:00 BP 137/65 04/16/20 08:00 Pulse Ox 94 04/16/20 08:00 Body Mass Index 54.9 Const: Other: Constitutional : Alert, oriented, not in distress Neck : Normal inspection, Supple Cardiovascular : RRR, S1 S2, no lower extremity edema Respiratory : bilateral chest wall movements, scattered wheezes, fair air entry bilaterally Gastrointestinal: soft, lax, Normal bowel sounds, Non tender Skin : Warm/Dry, No rash Neurological : Alert & oriented x3, No focal deficit Discharge Plan Discharge Patient Disposition: Home, Self-Care Referrals: Physician,Unknown [Primary Care Provider] - Discharge Medications: New dexamethasone 6 mg tablet 6 mg PO DAILY Qty: 5 RF: 0 Continued desogestrel-ethinyl estradiol [Apri] 0.15-0.03 mg Tablet 1 tab PO DAILY RF: 0 fluticasone propionate 50 mcg/actuation [place],Suspension 1 spray INTRANASAL DAILY RF: 0 albuterol sulfate 90 mcg/actuation HFA aerosol inhaler 1 puff inhalation QID PRN (Reason: shortness of breath or wheezing) RF: 0 Discharge Orders: Discharge Order (Routine); Ordered 04/16/20 Ordered By: Joey Brewer Diet: advance to usual diet Activity on Discharge: As tolerated Stand Alone Forms: Patient Portal Discharge page Care Plan Goals: Read below Health Concerns: Read below Plan of Treatment: You were admitted to the hospital for evaluation COVID-19 infection and increase shortness of breath requiring oxygen supplement. You were evaluated by infectious disease specialist and treated with oxygen, steroids and antiviral medication with good response over the course of hospital stay. Continue dexamethasone for 5 more days
--- NOTE | 2020-04-16 11:08 | MHC.CM.PN ---
Patient will be discharged home today no services. Patient has own transportation here. Nurse made aware.
== END 2020-04-16 12:00 | disposition home or self-care (01) | DRG 137 ==
LOC: HO.ED 10:44 → HO.EDOVER 12:33 → HO.IMC 04-13 13:52
PROVIDERS: Emergency Medicine Emergency Medical Services; Internal Medicine; Nurse Practitioner Acute Care; Admitting Provider Student in an Organized Health Care Education/Training Program; Emergency Provider Emergency Medicine; Visit Provider Student in an Organized Health Care Education/Training Program
DX: U07.1 COVID-19 (principal); J96.01 Acute respiratory failure with hypoxia; J12.82 Pneumonia due to coronavirus disease 2019; E66.01 Morbid (severe) obesity due to excess calories; Z68.43 Body mass index [BMI] 50.0-59.9, adult; J45.901 Unspecified asthma with (acute) exacerbation; K21.9 Gastro-esophageal reflux disease without esophagitis; Z79.51 Long term (current) use of inhaled steroids; Z88.0 Allergy status to penicillin; Z79.899 Other long term (current) drug therapy
CPT/HCPCS: 36415; 71045; 71275; 80048; 80076; 81001; 81025; 85025; 85379; 94640; 96374; 99285; J1100; J2930; J3490; Q9967

== ENCOUNTER 2020-04-19 15:53 | Outpatient (REF) | payer OTHER, SELFPAY | END 2020-04-19 15:54 | disposition home or self-care (01) | LOC: HO.LAB 15:53 | PROVIDERS: Visit Provider Internal Medicine | DX: Z20.822 Contact with and (suspected) exposure to COVID-19 (principal) | CPT/HCPCS: 36415; C9803; U0003; U0005 ==

== ENCOUNTER 2020-04-26 15:57 | Outpatient (REF) | payer OTHER, SELFPAY | END 2020-04-26 15:58 | disposition home or self-care (01) | LOC: HO.LAB 15:57 | PROVIDERS: Visit Provider Internal Medicine | DX: Z20.822 Contact with and (suspected) exposure to COVID-19 (principal) | CPT/HCPCS: 36415; C9803; U0003; U0005 ==

== ENCOUNTER 2020-05-08 18:13 | Emergency (ER) | payer OTHER, SELFPAY ==
[2020-05-08 18:24] VITALS: BP 111/66; PULSE 82; RESP 18; TEMP 37.1; O2SAT 99; BMI 54.9
--- NOTE | 2020-05-08 19:45 | ED.EPISTAXIS ---
History of Present Illness General Chief Complaint: Epistaxis Stated Complaint: nose issues Time Seen by Provider: 05/08/20 19:45 Source: patient Mode of arrival: ambulatory Limitations: no limitations History of Present Illness HPI Narrative: 30 y/o female with history of recent COVID pneumonia requiring hospitalization and supplemental oxygen presents to the ED with on/off right nose bleeds since her discharge from the hospital on 04/16. She denies any major bleeding that has required several minutes to stop. She has had nasal congestion and worsening bleeding when she blows her nose. She denies being on any blood thinners or aspirin. No trauma. On arrival she has no obvious bleeding - visualized in triage slight oozing with otoscope. Location: Yes right nares Onset/current episode: Yes week(s) Duration: Yes intermittent Pertinent past history: Yes history of previous nose bleed Associated symptoms: Yes nasal congestion Treatment prior to arrival: Yes none Related Data Home Medications Medication Instructions Recorded Confirmed albuterol sulfate 1 puff INHALATION QID PRN 04/12/20 05/06/20 desogestrel-ethinyl estradiol 1 tab PO DAILY 04/12/20 05/06/20 [Apri] fluticasone propionate 1 spray INTRANASAL DAILY 04/12/20 05/06/20 Previous Rx's Medication Instructions Recorded dexamethasone 6 mg PO DAILY #5 tab 04/16/20 omeprazole 20 mg capsule,delayed 20 mg PO DAILY 30 Days #30 cap 05/06/20 release Allergies Allergy/AdvReac Type Severity Reaction Status Date / Time penicillin V Allergy Unknown anaphylaxis Verified 05/08/20 18:24 Penicillins [PENICILLINS] Allergy Unknown Anaphylaxis Verified 05/08/20 18:24 Review of Systems Review of Systems: Constitutional: No Fever, No Chills ENT/Mouth: No sore throat, No Rhinorrhea, No Swallowing Difficulty, +nose bleeds Eyes: No Eye Pain, No Swelling, No Redness Cardiovascular: No Chest Pain, No SOB Respiratory: No Cough, No Sputum Musculoskeletal: No joint pain, No Myalgias Skin: No Skin Lesions, No rash Neuro: No Headache Heme/Lymph: No Bruising, No Lymphadenopathy PMFSH Past Medical History Medical History Asthma Bleeding nose Epistaxis, recurrent Surgical History No pertinent past surgical history Family History Family History Father Medical history unknown Mother Hypertension Scoliosis Maternal Grandfather Stroke Diabetes Other Asthma Social History Social History Household Members: Family Housing: Apartment Alcohol intake: never Smoking Status: Never smoker Advance Directives: No Advance Directives Information Provided: Yes service: No Current occupational status: unemployed Physical Exam Vital Signs: Vital Signs: Last Vital Signs Temp 98.7 F 05/08/20 18:24 Pulse 82 05/08/20 18:24 Resp 18 05/08/20 18:24 BP 111/66 05/08/20 18:24 Pulse Ox 99 05/08/20 18:24 Body Mass Index 54.9 Const: General: cooperative, healthy appearing, comfortable and no acute distress Orientation/consciousness: patient oriented x3 HENMT: Head: Yes normal to inspection Ears: hearing grossly normal bilaterally General nose exam: Normal external nose present, nasal polyps, Normal septum present, no nasal discharge noted, Epistaxis present on the right anterior source and active bleeding (small amount of oozing from turbinate); Negative for clots present and no foreign body in nares Face and sinus: Yes normal facial exam and Yes sinuses nontender Mouth: Normal oral and palatal mucosa present, lip normal, tongue normal, oropharynx normal, moist mucous membranes and other (no blood in posterior oropharynx) Teeth and gingiva: dentition normal Eyes: General: appearance normal, both eyes and all related structures Neck: Neck: Yes normal visual inspection Chest: Chest palpation & inspection: normal inspection of the chest Resp: Effort & Inspection: normal respiratory effort and able to speak in complete sentences Skin: General skin exam: no rashes or lesions noted Neuro: General: patient oriented x3 and gait normal Extrem: General: Yes normal to inspection and Yes full ROM Psych: Appearance: grossly normal and well kempt Course Course Course Narrative: 30 y/o female with intermittent minor epistaxis since COVID hospitalization where she required supplemental O2. Minor bleeding from turbinate noted on exam. Afrin ordered and administered, she is holding pressure. Will reassess. Reevaluation(s) Reevaluation #1: Bleeding stopped after Afrin given. She was counseled on management including nasal saline, humidification and Afrin. She will f/u with ENT if this continues to be an issue. Stable for d/c Critical Care Time Critical Care Time Critical Care Time: No Discharge Plan Discharge Clinical Impression: Epistaxis, recurrent Patient Disposition: Home, Self-Care Instructions: Nosebleed (ED) Additional Instructions: Recommend starting nasal saline spray in both nares 3 times per day to help prevent nose bleeds and keep your nose moist. Recommend using a humidifier in your home, especially in your bedroom at night. Use [place] nasal spray as needed for nose bleeding. Do not use for more than 3 days in a row - this can lead to worsening nasal congestion. When you get a nose bleed be sure to apply continuous pressure to the lower third of your nose for at least 10-15 straight. Compression stops most bleeding & mositure prevents it. Recommend following up with Ear, Nose and Throat doctor if this continues to be a problem. Prescriptions: No Action desogestrel-ethinyl estradiol [Apri] 0.15-0.03 mg Tablet 1 tab PO DAILY RF: 0 fluticasone propionate 50 mcg/actuation [place],Suspension 1 spray INTRANASAL DAILY RF: 0 albuterol sulfate 90 mcg/actuation HFA aerosol inhaler 1 puff inhalation QID PRN (Reason: shortness of breath or wheezing) RF: 0 dexamethasone 6 mg tablet 6 mg PO DAILY Qty: 5 RF: 0 omeprazole 20 mg capsule,delayed release(DR/EC) 20 mg PO DAILY 30 Days Qty: 30 RF: 0 Referrals: Aj Owen [Physician] - 2 days (recurrent epistaxis ) Interventions: ED Discharge Assessment Last Done: 05/08/20 20:16 Discharge Date/Time: 05/08/20 20:19
[2020-05-08] MEDS: Oxymetazoline HCl 0.05 % Nasal 15 ML SPRAY 2 SPRAY NOSTRIL-B (19:59)
== END 2020-05-08 20:19 | disposition home or self-care (01) ==
PROVIDERS: Emergency Provider Emergency Medicine; PCP Nurse Practitioner Family
DX: R04.0 Epistaxis (principal); Z86.16 Personal history of COVID-19; Z79.899 Other long term (current) drug therapy
CPT/HCPCS: 99284

== ENCOUNTER 2020-05-09 17:29 | Outpatient (REF) | payer OTHER, SELFPAY ==
[2020-05-09 18:04] LABS: MANUAL DIFF FLAG NO
[2020-05-09 18:20] LABS: Basophils Percent Auto 0.3 % (0-2); Eosinophils Absolute Auto 0.2 X10*3/uL (0.0-0.4); Eosinophils Percent Auto 2.5 % (0-4); Hematocrit 38.9 % (37-47); Hemoglobin 12.4 g/dl (12.0-16.0); Imm Gran Abs Auto 0.03 X10*3/uL (0.00-0.03); Imm Gran Pct Auto 0.4 % (0.0-0.4); Lymphocytes Absolute Auto 2.4 X10*3/uL (1.2-4.9); Mean Corpuscular HGB Conc 31.9 g/dl (31.0-35.0); Mean Corpuscular Hemoglobin 27.7 pg (27.0-33.0); Mean Platelet Volume 11.6 fL (9.4-12.3); Monocytes Absolute Auto 0.6 X10*3/uL (0.1-1.2); Monocytes Percent Auto 7.3 % (2-11); Neutrophils Absolute Auto 4.3 X10*3/uL (2.0-8.3); Neutrophils Percent Auto 57.5 % (45-73); Platelet Count 224 X10*3/uL (160-400); Red Blood Count 4.47 X10*6/uL (4.20-5.50); Red Cell Distribution Width 14.6 % (11.0-16.0); White Blood Count 7.5 X10*3/uL (4.8-10.8)
[2020-05-09 19:38] LABS: Anion Gap 12 (12-20); Blood Urea Nitrogen 10 mg/dL (9-16); Calcium 8.7 mg/dL (8.4-10.2); Carbon Dioxide 24 mmol/L (22-29); Chloride 105 mmol/L (96-108); Cholesterol 158 mg/dL; Estimated Glomerular Filt Rate > 60; Glucose Fasting 93 mg/dL (60-99); HDL Cholesterol 46 mg/dL; LDL Cholesterol Calculated 85 mg/dl; Potassium 4.1 mmol/L (3.3-5.1); Sodium 137 mmol/L (135-145); Triglycerides 139 mg/dL
== END 2020-05-09 17:30 | disposition home or self-care (01) ==
LOC: HO.LAB 17:29
PROVIDERS: PCP Nurse Practitioner Family; Visit Provider Nurse Practitioner Family
DX: Z00.00 Encounter for general adult medical examination without abnormal findings (principal)
CPT/HCPCS: 36415; 80048; 80061; 85025

== ENCOUNTER 2020-06-12 20:51 | Emergency (ER) | payer OTHER, SELFPAY ==
[2020-06-12 20:58] VITALS: BP 145/82; PULSE 84; RESP 16; TEMP 36.4; O2SAT 98; BMI 52.0
--- NOTE | 2020-06-12 21:15 | ED.FEMALEGU ---
HPI - Female Genitourinary General Chief complaint: Urogenital-Female Stated complaint: UTI? Time Seen by Provider: 06/12/20 21:15 Source: patient Mode of arrival: ambulatory Limitations: no limitations History of Present Illness HPI Narrative: 30 yo female hx of pneumonia and GERD here with 5 days of dysuria tried azo at home with no relief - no fevers, back pain, no concern for STI MD elicited complaint: dysuria Onset (ago): day(s) (5) Severity: mild Quality of pain: burning Consistency: intermittent Vaginal bleeding: none Urinary symptoms: Dysuria, Urgency and Frequency Exacerbating factors: urination Relieving factors: none Associated symptoms: denies other symptoms Treatment prior to arrival: OTC urinary analgesics Related Data Home Medications Medication Instructions Recorded Confirmed albuterol sulfate 1 puff INHALATION QID PRN 04/12/20 05/06/20 desogestrel-ethinyl estradiol 1 tab PO DAILY 04/12/20 05/06/20 [Apri] fluticasone propionate 1 spray INTRANASAL DAILY 04/12/20 05/06/20 Previous Rx's Medication Instructions Recorded dexamethasone 6 mg PO DAILY #5 tab 04/16/20 omeprazole 20 mg capsule,delayed 20 mg PO DAILY 30 Days #30 cap 05/06/20 release nitrofurantoin monohyd/m-cryst 100 mg PO BID 7 Days #14 cap 06/12/20 [Macrobid] Allergies Allergy/AdvReac Type Severity Reaction Status Date / Time penicillin V Allergy Unknown anaphylaxis Verified 05/08/20 18:24 Penicillins [PENICILLINS] Allergy Unknown Anaphylaxis Verified 05/08/20 18:24 Review of Systems Review of Systems: Constitutional : No Fever, No Chills ENT/Mouth : No sore throat, No Rhinorrhea Eyes: No Eye Pain, No Swelling, No Redness Cardiovascular : No Chest Pain, No SOB Respiratory : No Cough, No Sputum, No Wheezing Gastrointestinal : No Nausea, No Vomiting Genitourinary : pos Dysuria, pos Urinary Frequency, No Hematuria, Musculoskeletal : No joint pain, No Myalgias, No Joint Swelling Skin : No Skin Lesions, No rash PMFSH Past Medical History Attestation statement: The following information was validated with the patient. Medical History Asthma Bleeding nose Epistaxis, recurrent Surgical History No pertinent past surgical history Family History Family History Father Medical history unknown Mother Hypertension Scoliosis Maternal Grandfather Stroke Diabetes Other Asthma Social History Social History Household Members: Family Housing: Apartment Alcohol intake: never Smoking Status: Never smoker Advance Directives: No Advance Directives Information Provided: Yes service: No Current occupational status: unemployed Physical Exam Vital Signs: Vital Signs: Last Vital Signs Temp 97.5 F 06/12/20 20:58 Pulse 84 06/12/20 20:58 Resp 16 06/12/20 20:58 BP 145/82 H 06/12/20 20:58 Pulse Ox 98 06/12/20 20:58 Body Mass Index 52.0 Appearance: Alert. Oriented X3. No acute distress. Eyes: Pupils equal, round and reactive to light. ENT: Pharynx normal. Neck: Normal inspection. Neck supple. CVS: Normal heart rate and rhythm. Pulses normal. Respiratory: No respiratory distress. Breath sounds normal. Abdomen: Soft and nontender. Skin: Skin warm and dry. Normal skin color. Normal skin turgor. Extremities: No lower extremity edema. No calf ttp Neuro: Oriented X 3. No motor deficit. No sensory deficit. Course Course Course Narrative: will start on macrobid and DC home MDM - Female Genitourinary MDM Narrative Medical decision making narrative: 30 yo female with asthma, GERD here with 5 days of dysuria will need labs, UPT, no CVA ttp, no fevers, not toxic, no concerns for STI Lab Data Labs: Lab Results 06/12/20 06/12/20 Range/Units 21:12 21:12 Urine Color [place]ANGE Urine Appearance HAZY Urine pH 5.5 (5.0-8.0) Ur Specific [place] >= 1.030 H (1.005-1.025) Urine Protein 2+ H (NEG-TRACE) MG/DL Urine Glucose (UA) NEG (NEG) MG/DL Urine Ketones NEG (NEG) MG/DL Urine Blood TRACE (NEG) Urine Nitrite POS H (NEG) Ur Leukocyte Esterase TRACE H (NEG) Urine Test NEGATIVE (NEGATIVE) Discharge Plan Discharge Clinical Impression: Urinary tract infection Qualifiers: Urinary tract infection type: acute cystitis Hematuria presence: with hematuria Qualified Code(s): N30.01 - Acute cystitis with hematuria Patient Disposition: Home, Self-Care Instructions: Urinary Tract Infection in Women (ED) Additional Instructions: return to ED for any worsening symptoms or concerns Prescriptions: New nitrofurantoin monohyd/m-cryst [Macrobid] 100 mg capsule 100 mg PO BID 7 Days Qty: 14 RF: 0 No Action desogestrel-ethinyl estradiol [Apri] 0.15-0.03 mg Tablet 1 tab PO DAILY RF: 0 fluticasone propionate 50 mcg/actuation [place],Suspension 1 spray INTRANASAL DAILY RF: 0 albuterol sulfate 90 mcg/actuation HFA aerosol inhaler 1 puff inhalation QID PRN (Reason: shortness of breath or wheezing) RF: 0 dexamethasone 6 mg tablet 6 mg PO DAILY Qty: 5 RF: 0 omeprazole 20 mg capsule,delayed release(DR/EC) 20 mg PO DAILY 30 Days Qty: 30 RF: 0 Referrals: Meme Elizondo MD [Primary Care Provider] - 2 days (if not better)
[2020-06-12 21:49] LABS: Glucose Urine UA NEG (NEG); Leukocyte Esterase Urine TRACE (NEG); Nitrite Urine POS (NEG); PH 5.5 (5.0-8.0); Specific Gravity - Urine >= 1.030 (1.005-1.025); UACC Culture Trigger YES; Urine Blood TRACE (NEG); Urine Ketones NEG (NEG); Urine Protein 2+ MG/DL (NEG-TRACE)
[2020-06-12 21:50] LABS: UPreg QC Valid YES; Urine Pregnancy NEGATIVE (NEGATIVE)
[2020-06-12 21:51] LABS: Appearance Urine HAZY
[2020-06-12 21:53] LABS: Color Urine ORANGE
[2020-06-12 21:59] LABS: Bacteria Urine 1+ /LPF; Mucus Urine TRACE /LPF; Squamous Epithelial Cell Urine 2+ /LPF
[2020-06-12] MEDS: Nitrofurantoin Monohyd/M-Cryst 100 MG CAPSULE PO (22:07)
== END 2020-06-12 22:11 | disposition home or self-care (01) ==
PROVIDERS: Emergency Provider Emergency Medicine; PCP Internal Medicine
DX: N30.01 Acute cystitis with hematuria (principal); J45.909 Unspecified asthma, uncomplicated; K21.9 Gastro-esophageal reflux disease without esophagitis; Z79.899 Other long term (current) drug therapy
CPT/HCPCS: 81001; 81003; 81025; 87086; 87088; 87186; 99283; 99284

== ENCOUNTER 2021-01-01 11:58 | Outpatient (REF) | payer OTHER, SELFPAY ==
[2021-01-01 13:14] LABS: Alanine Aminotransferase 14 U/L (0-31); Albumin Level 3.6 g/dL (3.5-5.0); Alkaline Phosphatase 79 U/L (39-117); Anion Gap 10 (12-20); Aspartate Amino Transferase 13 U/L (5-31); Bilirubin Total 0.3 mg/dL (0.0-1.0); Blood Urea Nitrogen 9 mg/dL (9-16); Calcium 8.9 mg/dL (8.4-10.2); Carbon Dioxide 26 mmol/L (22-29); Chloride 108 mmol/L (96-108); Estimated Glomerular Filt Rate > 60; Gamma Glutamyl Transpeptidase 19 U/L (7-33); Glucose Random 96 mg/dL (60-115); Potassium 4.4 mmol/L (3.3-5.1); Sodium 140 mmol/L (135-145); Total Protein 6.8 g/dL (6.5-8.0)
[2021-01-02 09:29] LABS: HBS Num1 85.59 mIU/mL (0-7.99); HBsAGNum1 0.22 S/CO (0.00-0.99); Hepatitis A Antibody IgM 0.15 Index (0-0.79); Hepatitis B Surface Antigen Negative (Negative); ~HepC Num1 0.12 S/CO (0.00-0.79); ~Hepatitis A Antibody IgM Nonreactive (Nonreactive); ~Hepatitis B Surface Antibody REACTIVE (Nonreactive); ~Hepatitis C Antibody Nonreactive (Nonreactive)
[2021-01-02 09:42] LABS: HBc Num1 0.05 S/CO (0.00-0.79); Hepatitis B Core Antibody Nonreactive (Nonreactive)
== END 2021-01-01 11:59 | disposition home or self-care (01) ==
LOC: HO.LAB 11:58
PROVIDERS: PCP Internal Medicine; Visit Provider Internal Medicine
DX: R79.89 Other specified abnormal findings of blood chemistry (principal)
CPT/HCPCS: 36415; 80053; 82977; 86704; 86706; 86709; 86803; 87340

== ENCOUNTER 2021-04-09 07:49 | Outpatient (REF) | payer OTHER, SELFPAY ==
--- NOTE | ~2021-04-09 | US_ITS ---
EXAMINATION: US ABDOMEN COMPLETE CLINICAL INFORMATION: Elevated LFTs. COMPARISON: CT abdomen and pelvis with contrast 05/20/2017. Ultrasound abdomen complete 01/17/2014. TECHNIQUE: Real-time imaging of the abdominal viscera. FINDINGS: PANCREAS: Not well visualized due to bowel gas. ABDOMINAL AORTA: The proximal, mid, and distal segments are normal in caliber. INFERIOR VENA CAVA: Visualized portions are normal. LIVER: Normal. The liver is normal in size. The liver contour is normal. Parenchymal echogenicity is normal. No focal hepatic lesion. There is no intrahepatic biliary duct dilatation seen. GALLBLADDER: Normal. The gallbladder is physiologically distended without evidence of stones, sludge, polyps, wall thickening or pericholecystic fluid. COMMON BILE DUCT: Normal in caliber measuring 0.3 cm in diameter. RIGHT KIDNEY: Normal. No hydronephrosis. No renal calculi or focal parenchymal lesions. The kidney measures 12.3 cm in maximum dimension. LEFT KIDNEY: Normal. No hydronephrosis. No renal calculi or focal parenchymal lesions. The kidney measures 12.2 cm in maximum dimension. SPLEEN: Normal. The spleen measures 11.3 cm in maximum dimension. FREE FLUID: None. US/US abdomen complete IMPRESSION: Limited visualization of the pancreas otherwise exam.
== END 2021-04-09 07:50 | disposition home or self-care (01) ==
LOC: HO.US 07:49
PROVIDERS: Visit Provider Internal Medicine
DX: R79.89 Other specified abnormal findings of blood chemistry (principal); K21.9 Gastro-esophageal reflux disease without esophagitis
CPT/HCPCS: 76700

== ENCOUNTER 2021-06-05 17:22 | Outpatient (REF) | payer OTHER, SELFPAY ==
[2021-06-05 18:08] LABS: Appearance Urine HAZY; Color Urine YELLOW; Glucose Urine UA NEG (NEG); Leukocyte Esterase Urine 2+ (NEG); Nitrite Urine NEG (NEG); Specific Gravity - Urine 1.025 (1.005-1.025); UACC Culture Trigger YES; Urine Blood 1+ (NEG); Urine Ketones NEG (NEG); Urine Protein NEG (NEG-TRACE)
[2021-06-05 18:20] LABS: Bacteria Urine 1+ /LPF; Squamous Epithelial Cell Urine 2+ /LPF
[2021-06-05 18:21] LABS: RBC Urine 0-2 /HPF (0)
== END 2021-06-05 17:23 | disposition home or self-care (01) ==
LOC: HO.LAB 17:22
PROVIDERS: PCP Internal Medicine; Visit Provider Internal Medicine
DX: R30.0 Dysuria (principal)
CPT/HCPCS: 81001; 87086

== ENCOUNTER 2021-07-16 09:37 | Outpatient (REF) | payer OTHER, SELFPAY ==
--- NOTE | ~2021-07-16 | CT_ITS ---
EXAMINATION: CT HEAD WITHOUT CONTRAST CLINICAL INFORMATION: Headache COMPARISON: None TECHNIQUE: Contiguous axial imaging was performed from the skull base to vertex without intravenous administration of contrast. This CT examination was performed using dose optimization techniques as appropriate, variously including the following: *Automated exposure control *Adjustment of mA and/or kV according to patient size (this includes techniques or standardized protocols for targeted exams where dose is matched to indication/reason for exam; i.e. extremities or head) *Use of iterative reconstruction technique DLP: 817 mGy-cm FINDINGS: There is no evidence of acute intracranial hemorrhage or territorial infarction. No abnormal mass effect or midline shift is seen. Hernandez to white matter differentiation is well preserved. No extra-axial fluid collections are identified. The ventricles are normal in size. There is no abnormal attenuation within the brain parenchyma. The osseous structures and soft tissues are normal. There is mild mucoperiosteal thickening bilateral frontal, ethmoid, sphenoid and left maxillary sinus. There is mild deviation nasal septum to the left. The bony sinus bennett are intact. The mastoid sinuses are clear. CT/CT head/brain wo con IMPRESSION: No acute intracranial process seen. Chronic pansinusitis.
== END 2021-07-16 09:38 | disposition home or self-care (01) ==
LOC: HO.CT 09:37
PROVIDERS: PCP Internal Medicine; Visit Provider Internal Medicine
DX: R51.9 Headache, unspecified (principal)
CPT/HCPCS: 70450

== ENCOUNTER 2022-08-17 14:33 | Emergency (ER) | payer OTHER, SELFPAY ==
[2022-08-17 15:56] VITALS: BP 121/76; PULSE 70; RESP 18; TEMP 36.5; O2SAT 97; BMI 48.5
--- NOTE | 2022-08-17 15:56 | ED_ITS ---
HPI - Female Genitourinary General Chief complaint: Urogenital-Female Stated complaint: uti? Time Seen by Provider: 08/17/22 17:20 History of Present Illness HPI Narrative: patient complains of burning with urination and urinary frequency for the past 2 days, similar to prior urinary tract infection She has no nausea no vomiting no abdominal pain she does have some low back pain no flank pain no fever no chills Related Data Home Medications Medication Instructions Recorded Confirmed albuterol sulfate 90 mcg/actuation 1 puff inhalation QID PRN 04/12/20 07/02/21 aerosol inhaler shortness of breath or wheezing desogestrel 0.15 mg-ethinyl 1 tab PO DAILY 04/12/20 07/02/21 estradiol 0.03 mg tablet (Apri) fluticasone propionate 50 1 spray intranasal DAILY 04/12/20 07/02/21 mcg/actuation nasal spray,suspension Previous Rx's Medication Instructions Recorded omeprazole 20 mg capsule,delayed 20 mg PO DAILY 30 days #30 caps 05/06/20 release nitrofurantoin 100 mg PO Q12H 5 days #10 caps 08/17/22 monohydrate/macrocrystals 100 mg capsule (Macrobid) Allergies Allergy/AdvReac Type Severity Reaction Status Date / Time penicillin V Allergy Unknown anaphylaxis Verified 07/02/21 11:03 Penicillins [PENICILLINS] Allergy Unknown Anaphylaxis Verified 07/02/21 11:03 [facility] Past Medical History Source: nursing notes reviewed Medical History Allergic rhinitis Asthma Longitudinal melanonychia Morbid obesity with BMI of 50.0-59.9, adult Pneumonia due to 2019-nCoV Surgical History No pertinent past surgical history Family History Family History Father Medical history unknown Mother Hypertension Scoliosis Maternal Grandfather Stroke Diabetes Other Asthma Social History Social History Household Members: Family Housing: Apartment Alcohol intake: never Patient Tobacco Use Status: Never used Tobacco e-Cigarette/Vaping Use: Never Used Second Hand Smoke Exposure: Yes Advance Directives: No Advance Directives Information Provided: No service: No Current occupational status: unemployed Cognitive needs: No Hearing needs: No Vision needs: No Physical Exam Vital Signs: Vital Signs: Last Vital Signs Temp 97.7 F 08/17/22 15:56 Pulse 70 08/17/22 15:56 Resp 18 08/17/22 15:56 BP 121/76 08/17/22 15:56 Pulse Ox 97 08/17/22 15:56 O2 Del Method Room Air 08/17/22 15:56 BMI result Body Mass Index 48.5 General appearance comfortable no distress The neck is supple No respiratory distress The abdomen is soft nontender no rebound no guarding The back there is no CVA tenderness there is mild lower lumbar midline tenderness Extremities full range of motion x4 Skin no rash Course Course Course Narrative: This is an RME: Additional HPI, ROS, PE not included below will be deferred to primary provider. Patient is a 32-year-old female who presents emergency department with concerns of potential urinary tract infection. She states for 2 days she has been experiencing dysuria, suprapubic pressure, lower back pain. Denies fevers, chills, nausea, vomiting, ABD pain, vaginal bleeding, vaginal discharge, pelvic pain. LMP 08/10/22 Plan: Urinalysis, hCG Urine test negative Urinalysis was positive for nitrite positive for leukocyte esterase, positive for bacteria It also tested positive for glucose but a fingerstick was 80 She is treated with Macrobid for urinary tract infection and is discharged well- appearing tolerating p.o. Medical Decision Making Lab Data Labs: Lab Results 08/17/22 08/17/22 08/17/22 Range/Units 16:11 16:11 17:24 POC Glucose 88 (60-115) mg/dL Urine Color [place] Urine Appearance Clear Urine pH 6.0 (5.0-9.0) Ur Specific [place] 1.015 (1.005-1.025) Urine Protein 30 (1+) H (Neg-Trace) mg/dL Urine Glucose (UA) 100 H (Negative) mg/dL Urine Ketones Negative (Negative) mg/dL Urine Blood Negative (Negative) Urine Nitrite Positive H (Negative) Ur Leukocyte Esterase Small (1+) H (Negative) Urine RBC 0-2 (0-2) /HPF Urine WBC 6-10 (0-5) /HPF Ur Squamous Epith Cells 3-5 (0-2) /HPF Urine Bacteria 2+ (None Seen) Hyaline Casts 0-2 (0-2) /LPF Urine Test NEGATIVE (NEGATIVE) Discharge Plan Discharge Clinical Impression: Urinary tract infection Patient Disposition: Home, Self-Care Additional Instructions: urine was positive for urinary tract infection No We checked a fingerstick for glucose which was normal Use Macrobid for the next 5 days which usually works for urinary tract infection We will do a culture of the urine and if it turns out there is resistance to Macrobid we will call you Return any time for fever vomiting increased abdominal pain any worse condition or any concerns Prescriptions: New nitrofurantoin monohyd/m-cryst [Macrobid] 100 mg capsule 100 mg PO Q12H 5 Days Qty: 10 0RF Rx Instructions: must administer with a meal/food No Action desogestrel-ethinyl estradiol [Apri] 0.15-0.03 mg Tablet 1 tab PO DAILY fluticasone propionate 50 mcg/actuation [place],Suspension 1 spray INTRANASAL DAILY albuterol sulfate 90 mcg/actuation HFA aerosol inhaler 1 puff inhalation QID PRN (Reason: shortness of breath or wheezing) omeprazole 20 mg capsule,delayed release(DR/EC) 20 mg PO DAILY 30 Days Qty: 30 0RF
[2022-08-17 16:19] LABS: Appearance Urine Clear; Color Urine Orange; Glucose Urine UA 100 mg/dL (Negative); Leukocyte Esterase Urine Small (1+) (Negative); Nitrite Urine Positive (Negative); Specific Gravity - Urine 1.015 (1.005-1.025); UMIC TRIGGER UACC YES; Urine Blood Negative (Negative); Urine Ketones Negative (Negative); Urine Protein 30 (1+) mg/dL (Neg-Trace)
[2022-08-17 16:23] LABS: UPreg QC Valid YES; Urine Pregnancy NEGATIVE (NEGATIVE)
[2022-08-17 16:25] LABS: RBC Urine 0-2 /HPF (0-2)
[2022-08-17 16:26] LABS: Bacteria Urine 2+ (None Seen); Hyaline Casts Urine 0-2 /LPF (0-2); UACC Culture Trigger YES
[2022-08-17 17:28] LABS: Glucose, Whole Blood 88 mg/dL (60-115)
[2022-08-17] MEDS: Nitrofurantoin Monohyd/M-Cryst 100 MG CAPSULE PO (17:57)
== END 2022-08-17 18:01 | disposition home or self-care (01) ==
PROVIDERS: Nurse Practitioner Family; Emergency Provider Internal Medicine; PCP Internal Medicine
DX: N39.0 Urinary tract infection, site not specified (principal); Z79.899 Other long term (current) drug therapy
CPT/HCPCS: 81001; 81025; 82947; 87086; 87088; 87186; 99283

== ENCOUNTER 2025-01-17 14:03 | Outpatient (AMB) | payer OTHER, SELFPAY ==
[2025-01-17 14:10] VITALS: BP 120/86; PULSE 89; O2SAT 96; BMI 53.1
--- NOTE | 2025-01-17 14:10 | A.OFFPC_ITS ---
Vital Signs 01/17/25 14:10 Height 5 ft 4 in Weight 309 lb 6 oz BMI 53.1 BP 120/86 Blood Pressure Location Lt brachial Position Sitting Pulse 89 Pulse Source Pulse Oximeter Pulse Oximetry (%) 96 Oxygen Delivery Method Room Air Intake Visit Reasons: Asthma / F/u care Knot Cutter Required: No Accompanied by: Self / Same As Patient Allergies penicillin V Allergy (Unknown, Verified 01/17/25 14:37) anaphylaxis Penicillins (PENICILLINS) Allergy (Unknown, Verified 01/17/25 14:37) Anaphylaxis Medication List - Last Reconciled 01/17/25 by Apolinar Boateng MD albuterol sulfate 90 mcg/actuation 1 puff inhalation QID PRN omeprazole 20 mg PO DAILY 30 days Tobacco use date assessed: 01/17/25 Dental Screening Dental Screen Date: 01/17/25 Did you have a dental visit in the last 12 months?: Yes Did you have a dental problem in the last 6 months where you did not have access to dental care?: No Was dental information given to patient?: Patient has dentist HPI Asthma / F/u care HPI Details Patient comes in today for her follow up visit - she has not been back since June 2021 Patient delivered her baby (daughter) about a year ago in September 2023 by induction of labor at [facility] due to nonreassuring heart tones during triage Patient states that feels okay and mainly needs her Albuterol inhaler Rx refilled - states that she has not had her inhaler in a while now Reports that she's had a couple of situations recently wherein having her inhaler would have been helpful She currently denies any headaches or dizziness Denies any chest pains, no increased SOB at present No nausea/vomiting, no abdominal pain No change in bowel habits noted [facility] Medical History Allergic rhinitis Morbid obesity with BMI of 50.0-59.9, adult Longitudinal melanonychia Pneumonia due to 2019-nCoV Asthma Surgical History No pertinent past surgical history Family History Father Medical history unknown Mother Hypertension Scoliosis Maternal Grandfather Stroke Diabetes Other Asthma Social History Household Members: Family Housing: Apartment Alcohol intake: never Patient Tobacco Use Status: Never used Tobacco e-Cigarette/Vaping Use: Never Used Second Hand Smoke Exposure: Yes service: No Current occupational status: unemployed Cognitive needs: No Hearing needs: No Vision needs: No Questionnaire PHQ-9 Over the last 2 weeks, how often have you been bothered by any of the following problems? 1. Little interest or pleasure in doing things: not at all 2. Feeling down, depressed, or hopeless: not at all 3. Trouble falling or staying asleep, or sleeping too much: not at all 4. Feeling tired or having little energy: not at all 5. Poor appetite or overeating: not at all 6. Feeling bad about yourself - or that you are a failure or have let yourself or your family down: not at all 7. Trouble concentrating on things, such as reading the newspaper or watching television: not at all 8. Moving or speaking so slowly that other people could have noticed. Or the opposite - being so fidgety or restless that you have been moving around a lot more than usual: not at all 9. Thoughts that you would be better off or of hurting yourself in some way: not at all Total score: 0 Depression Screening Interpretation: Negative Depression Screening Done: Yes 63628 - PHQ-9 Billing: Yes Source: Developed by Drs. Gunner Medina, Bhavana Evans, Jordan Vallejo and colleagues, with an educational juliet from [employer]. Thrive Questionnaire Date Thrive assessed: 01/17/25 I am a: Patient What is your living situation today?: I have a steady place to live Within the past 12 months, did the food you bought not last and you didn't have the money to get more?: Never true Within the past 12 months, did you worry whether your food would run out before you got money to buy more?: Never true Do you have trouble paying for medicines?: No Do you have trouble getting transportation to medical appointments?: No Do you have trouble paying your heating and electricity bill?: No Do you have trouble taking care of your child, family member or friend?: No Do you have trouble with day-to-day activities such as bathing, preparing meals, shopping, managing finances, etc.?: No Are you currently unemployed and looking for a job?: No Are you interested in more education?: No Please select the resources that you would like help with: None Currently or been in a relationship where the following occur: No concerns reported THRIVE Score: 0 AUDIT C Alcohol Use Questionnaire (AUDIT-C) 1. How often do you have a drink containing alcohol?: Never 3. How often do you have six or more drinks on one occasion?: Never Total Score: 0 Score Reviewed/Action Taken: Yes CARL-7 AMB Questionnaire CARL-7 Date CARL - 7 assessed: 01/17/25 Feeling nervous, anxious, or on edge: 0 = Not at all Not being able to stop or control worryin = Not at all Worrying too much about different things: 0 = Not at all Trouble relaxin = Not at all Being so restless that it is hard to sit still: 0 = Not at all Becoming easily annoyed or irritable: 0 = Not at all Feeling afraid as if something awful might happen: 0 = Not at all Total CARL-7 score (0-4 normal; 5-9 mild; 10-14 moderate; 15-21 severe): 0 Source: Developed by Drs. Gunner Medina, Bhavana Evans, Jordan Vallejo and colleagues, with an educational juliet from [employer]. Review of Systems Const Denies chills, Denies fatigue, Denies fever(s) and Denies headache(s) ENT Denies dysphagia, Denies dizziness, Denies otalgia, Denies headache(s), Denies neck pain, Denies odynophagia and Denies sore throat Card Denies chest pain, Denies palpitations and Denies dyspnea Resp Denies chest congestion (but chest feels tight at times due to her asthma acting up), Reports cough (occasional), Denies dyspnea and Reports wheezing (occasionally) GI Denies abdominal pain, Denies constipation, Denies dysphagia, Denies heartburn, Denies diarrhea, Denies nausea, Denies odynophagia and Denies vomiting Denies difficulty voiding, Denies nocturia and Denies dysuria Musc Denies back pain and Denies neck pain Skin/Breast Denies rash Neuro Denies dizziness and Denies headache(s) Endo Denies fatigue and Denies palpitations Aller/Immun Reports wheezing (occasionally) Physical exam (Primary Care) Vital Signs: Last Vital Signs Pulse 89 01/17/25 14:10 BP 120/86 01/17/25 14:10 Pulse Ox 96 01/17/25 14:10 Oxygen Delivery Method Room Air 01/17/25 14:10 BMI result Body Mass Index 53.1 Tobacco/Smoking Status: Tobacco use Status Tobacco use date assessed 01/17/25 01/17/25 14:19 Patient Tobacco Use Status Never used Tobacco 01/17/25 14:19 e-Cigarette/Vaping Use Never Used 01/17/25 14:19 PHQ-9: PHQ-9 Score PHQ-9: Total score 0 01/17/25 14:19 Depression Screening Interpretation: Negative Thrive Assessment: Date of Thrive Assessment Date Thrive assessed 01/17/25 01/17/25 14:19 Currently or been in a relationship where the following occur: No concerns reported Const General: no acute distress and alert HENMT Ears: TM's normal bilaterally and EAC's normal Throat: Yes posterior oropharynx normal and Yes tonsils normal (no TP co ngestion) Neck Neck: Yes supple and No lymphadenopathy Thyroid: Thyroid normal Resp Auscultation: clear to auscultation bilaterally, no crackles, no rales and no wheezes Cardio Rate: regular rate Rhythm: regular rhythm Heart sounds: no murmurs GI Palpation (GI): Soft to palpation and nontender General: Yes no CVA tenderness Back/Spine/Pelvis Back: no CVA tenderness Thoracic/Lumbar Spine: No lumbar spinal tenderness Skin Rashes: no rashes Extrem General: Yes no clubbing, cyanosis or edema Coding Level of Care Code Est Pt Level 3 (04854) Diagnoses Mild intermittent asthma without complication J45.20 Asthma severity: mild Asthma persistence: intermittent Asthma complication type: uncomplicated Gastroesophageal reflux disease without esophagitis K21.9 Esophagitis presence: without esophagitis Morbid obesity with BMI of 50.0-59.9, adult E66.01; Z68.43 Additional Codes PHQ-9 - 68333 - PHQ-9 Billing: Yes ([id number]) Assessment & Plan Assessment & Plan (1) Asthma: Code(s): J45.909 - Unspecified asthma, uncomplicated Category: Medical Qualifiers: Asthma severity: mild Asthma persistence: intermittent Asthma complication type: uncomplicated Qualified Code(s): J45.20 - Mild intermittent asthma, uncomplicated Plan: Continue Albuterol HFA 1 to 2 inhalations Q 6 hours PRN - Rx refilled (2) GERD (gastroesophageal reflux disease): Code(s): K21.9 - Gastro-esophageal reflux disease without esophagitis Category: Medical Qualifiers: Esophagitis presence: without esophagitis Qualified Code(s): K21.9 - Gastro-esophageal reflux disease without esophagitis Plan: Dietary restrictions reinforced She was on Omeprazole 20 mg QD in the past but has not needed to take this Rx in a while now (3) Morbid obesity with BMI of 50.0-59.9, adult: Code(s): E66.01 - Morbid (severe) obesity due to excess calories; Z68.43 - Body mass index [BMI] 50.0-59.9, adult Category: Medical Plan: Reinforced diet/exercise as tolerated/lose weight Plan To return in early May 2025 for her annual physical exam Patient is advised to get her labs done just before she returns for her appointment in May 2025 Orders: Orders Complete Blood Count Auto Diff 05/13/25 D64.9 - Anemia, unspecified, Z00.00 - Encounter for general adult medical examination without abnormal findings Lipid Panel 05/13/25 E78.00 - Pure hypercholesterolemia, unspecified, Z00.00 - Encounter for general adult medical examination without abnormal findings TSH reflex Free T4 05/13/25 E78.00 - Pure hypercholesterolemia, unspecified, Z00.00 - Encounter for general adult medical examination without abnormal findings Vitamin D 25-OH Total 05/13/25 E55.9 - Vitamin D deficiency, unspecified, Z00.00 - Encounter for general adult medical examination without abnormal findings Comprehensive [place]. Panel Fast 05/13/25 E78.00 - Pure hypercholesterolemia, unspecified, Z00.00 - Encounter for general adult medical examination without abnormal findings UA CC w/rflx Micro + Cult 05/13/25 R30.0 - Dysuria, Z00.00 - Encounter for general adult medical examination without abnormal findings Hemoglobin A1c 05/13/25 R73.9 - Hyperglycemia, unspecified, Z00.00 - Encounter for general adult medical examination without abnormal findings Medications: Changed From albuterol sulfate 90 mcg/actuation 1 puff inhalation QID PRN shortness of breath or wheezing J45.20 - Mild intermittent asthma, uncomplicated To albuterol sulfate 90 mcg/actuation 1 puff inhalation QID PRN 8.5 grams 5RF shortness of breath or wheezing 30 days J45.20 - Mild intermittent asthma, uncomplicated
--- OUTSIDE RECORDS SUMMARY | 2025-01-17 17:58 | XMS_ITS | Encounter Summary ---
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 Primary Care Provider Unavailabl e Reason for Visit * Reason Comments Med Refill Encounter Details Date Type Department Care Team ([facility] Contact Info) Description 08/18/2023 Refill [facility] [address] [place] [address] Lulu Oconnor BDS Social History Tobacco Use Types Packs/Day Years Used Date Smoking Tobacco: Never Smokeless Tobacco: Never Alcohol Use Standard Drinks/Week Comments Never 0 (1 standard drink = 0.6 oz pur e alcohol) Comments Unknown Sex and Gender Information Value Date Recorded Sex Assigned at Female 12/23/2021 10:21 AM EDT Legal Sex Female 10:21 AM EDT Gender Identity Female 12/23/2021 10:21 AM EDT Sexual Orientation Don't know 12/23/2021 10 :21 AM EDT documented as of this encounter Miscellaneous Notes * Telephone Encounter - Lulu Oconnor BDS - 08/21/2023 8:10 AM EDT Approving, but needs appt for additional refills. documented in this encounter Plan of Treatment Not on file documented as of this encounter Visit Diagnoses Not on filedocumented in this encounter
--- OUTSIDE RECORDS SUMMARY | 2025-01-17 17:58 | XMS_ITS | Clinical Summary ---
Author Organization [facility] it Address [address] [place] [address] Care Team Providers Care Assorter Name Role Phone Unavailable Primary Care Provider Unavailabl e Surgical History Surgery Date Site/Laterality Comments OTHER SURGICAL HISTORY PROCEDURE: DENIES PREVIOUS SURGERY Medical History Medical History Date Comments Asthma DX:Asthma Venereal disease 2011 DX:Venereal dis ease; COMMENT: + HSV Family History Medical History Relation Name Comments Diabetes Father Diabetes Maternal Grandfather Hypertension Maternal Grandfather Arthritis Mother Breast cancer Neg Hx Colon cancer Neg Hx Ovarian cancer Neg Hx Prostate cancer Neg Hx Relation Name Status Comments Father Maternal Grandfather Alive Mother Social History Tobacco Use Types Packs/Day Years Used Date Smoking Tobacco: Never Smokeless Tobacco: Never Alcohol Use Standard Drinks/Week Comments No 0 (1 standard drink = 0.6 oz pur e alcohol) Comments Unknown Sex and Gender Information Value Date Recorded Sex Assigned at Not on file Legal Sex Female 11:35 PM EST Gender Identity Not on file Sexual Orientation Not on file Obstetrics History Plan of Treatment Health Maintenance Due Date Last Done Comments Hepatitis B Vaccines (1 of 3 - 19+ 3-dose series) 2011 HPV Vaccines (1 - 3-dose SCD M series) 2019 Cervical Cancer Screening: P ap Smear 07/14/2020 07/14/2017, 07/14/2017 HIV Screening 12/27/2023 Hepatitis C Screening 12/27/2023 Social Influencers of Health Screening 12/27/2023 Depression Screening 02/24/2024 COVID-19 Vaccine ( - 2024-2 6 season) 2024 Influenza Vaccine (#1) 2024 12/15/2017 DTaP,Tdap,and Td Vaccines (2 - Td or Tdap) 10/31/2027 10/30/2017 RSV Immunization Adult Patients (1 - 1-dose 75+ series) 2067 HIB Vaccines Aged Out No longer eligi ble based on patient's age to complete this topic Hepatitis A Vaccines Aged Out No long er eligible based on patient's age to complete this topic IPV Vaccines Aged Out No longer eligi ble based on patient's age to complete this topic MMR Vaccines Aged Out No longer eligi ble based on patient's age to complete this topic Meningococcal ACWY Vaccine Aged Out N o longer eligible based on patient's age to complete this topic Meningococcal B Vaccine Aged Out No l onger eligible based on patient's age to complete this topic Pneumococcal Vaccine: Pediatrics (0 to 5 Years) and At-Risk Patients (6 to 49 Years) Aged Out No longer eligible b ased on patient's age to complete this topic RSV Immunization Patients Under 20 months Aged Out No longer eligible b ased on patient's age to complete this topic Varicella Vaccines Aged Out No longer eligible based on patient's age to complete this topic Procedures Procedure Name Priority Date/Time Associated Diagnosis Comments PAP SMEAR Routine 07/14/2017 from Last 3 Months or Most Recently Relevant to Health Maintenance Results * Pap smear (07/14/2017) 07/14/2017 Narrative HISTORICAL TESTING LAB RESULTING AGENCY - 07/22/2017 7:35 AM EDT [id number] THINPREP PAP, IMAGED: NEGATIVE FOR SQUAMOUS INTRAEPITHELIAL LESION AND MALIGNANCY . REACTIVE CELLULAR CHANGES. SRIDHAR IS PRESENT. ELADIA DODGE, CT(ASCP) (CASE SCREENED 07 17 2017) ROCIO BELTRAN M.D., PATHOLOGIST (CASE ELECTRONICALLY SIGNED 07 20 2017) ADEQUACY: SATISFACTORY. ENDOCERVICAL/TRANSFORMATION ZONE COMPONENT ABSENT. SOURCE: THINPREP PAP HPV IF ASCUS, CERVICAL, IMAGED: CLINICAL INFORMATION: HPV IF DIAGNOSIS OF ASCUS. , LMP 04/23/17, Z12.4 Bri Markham CNM LAB CYTOLOGY ORDERABLES Final R esult HISTORICAL TESTING LAB RESULTING AGENCY from Last 3 Months or Most Recently Relevant to Health Maintenance
--- OUTSIDE RECORDS SUMMARY | 2025-01-17 17:58 | XMS_ITS | Clinical Summary ---
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 12/12/2016 Act piper Sodium Fluoride (Sodium Fluoride 5000 PPM) 1.1 % paste PLEASE USE PEA SIZE TO BRUSH YOUR TEETH. BRUSH, AND SPIT. DO NOT RINSE. USE EVERY NIGHT BEFORE SLEEP. 100 g 08/21/2023 Active Active Problems Problem Noted Date Diagnosed Date Asthma 05/26/2024 Family history of diabetes mellitus in father History of herpes genitalis 05/26/2024 HSV infection 05/26/2024 Mixed stress and urge urinary incontinence 05/26 Severe obesity ([facility]) 05/26/2024 Morbid obesity with BMI of 50.0-59.9, adult ([facility]) 05/26/2024 Nausea and vomiting in 05/26/2024 Penicillin allergy 05/26/2024 05/26/2024 Vitamin D deficiency 12/12/2016 Allergic rhinitis 04/30/2016 Mild intermittent asthma 04/30/2016 Morbid obesity ([facility]) 04/30/2016 Immunizations Immunization Administration Dates Next Due Pfizer Covid-19 Vaccine 12+ Bivalent 01/28/2022 Social History Tobacco Use Types Packs/Day Years Used Date Smoking Tobacco: Never Smokeless Tobacco: Never Alcohol Use Standard Drinks/Week Comments Never 0 (1 standard drink = 0.6 oz pur e alcohol) Comments No Sex and Gender Information Value Date Recorded Sex Assigned at Female 12/23/2021 10:21 AM EDT Legal Sex Female 10:21 AM EDT Gender Identity Female 12/23/2021 10:21 AM EDT Sexual Orientation Don't know 12/23/2021 10 :21 AM EDT Last Filed Vital Signs Vital Sign Reading Time Taken Comments Blood Pressure 116/80 06/03/2024 1:20 PM EDT Pulse 70 02/04/2024 1:07 PM EST Temperature - - Respiratory Rate - - Oxygen Saturation - - Inhaled Oxygen Concentration - - Weight - - Height - - Body Mass Index - - Plan of Treatment Health Maintenance Due Date Last Done Comments Depression Screening 1992 HIV Screening 1992 Lipid Panel 1992 SDOH Screening 1992 Disability Screening 1992 Alcohol/Substance Use Screening 2004 Family Planning (PISQ) 2007 Hepatitis C Screening 2010 Pneumococcal Vaccine: Pediatrics (0 to 5 Years) and At-Risk Patients (6 to 49) Years (1 of 2 - PCV) 2011 Pap Smear 2013 Cervical Cancer Screening 2022 HPV/Cotest 2022 Dental Oral Exam 07/24/2023 01/22/2023, , 11/07/2013, Additional history exists Dental Prophylaxis 08/05/2024 02/04/2024, 1 03/24/2022, 02/27/2017, Additional history exists COVID-19 Vaccine ( season) 2024 01/28/2022, 02/26/2021, 06/26/2020, Additional history exists Influenza Vaccine (#1) 2024 4, 04/10/2023, 12/31/2020, Additional history exists Dental X-Ray: Bitewings 02/04/2025 02/04/20 24, 01/22/2023, 10/23/2016, Additional history exists Tobacco Screening 06/03/2025 06/03/2024 Dental X-Ray: Full Mouth 01/23/2026 023, 01/22/2023, 10/23/2016, Additional history exists DTaP/Tdap/Td Vaccines (11 - Td or Tdap) 08/02/2033 08/03/2023, 05/05/2019, 01/07/2019, Additional history exists Zoster Vaccines (1 of 2) 2042 RSV Patients and Patients Aged 60 years or older (1 - 1-dose 75+ series) 2067 HIB Vaccines Completed 03/23/1995, 03/27, 1992 IPV Vaccines Completed 03/31/1996, 08/24, 04/18/1993, Additional history exists Hepatitis A Vaccines Completed 03/19/2011, 10/20/19 HPV Vaccines Completed 11/11/2012, 06/2011, 03/19/2011 Hepatitis B Vaccines Completed 01/13/2013, 09/16/1995, 06/22/1995, Additional history exists Meningococcal B Vaccine Aged Out No l onger eligible based on patient's age to complete this topic Meningococcal Vaccine Aged Out No jessica raphael eligible based on patient's age to complete this topic RSV under 20 months Aged Out No longe r eligible based on patient's age to complete this topic Rotavirus Vaccines Aged Out No longer eligible based on patient's age to complete this topic Procedures Procedure Name Priority Date/Time Associated Diagnosis Comments Full PROPHYLAXIS - ADULT Routine 024 1:00 PM EST BITEWINGS - 4 RADIOGRAPHIC IMAGES Routine 02/04/2024 1:00 PM EST PANORAMIC RADIOGRAPHIC IMAGE Routine 01/22/2023 1:30 PM EST PERIODIC ORAL EVALUATION - ESTABLISHED PATIENT Routine 01/22/2023 1:30 PM EST from Last 3 Months or Most Recently Relevant to Health Maintenance Insurance [facility] STAND ADULT
== END 2025-01-17 14:53 | disposition home or self-care (01) ==
LOC: HO.HMCH 14:03
PROVIDERS: PCP Internal Medicine; Visit Provider Internal Medicine
DX: J45.20 Mild intermittent asthma, uncomplicated (principal); K21.9 Gastro-esophageal reflux disease without esophagitis; E66.01 Morbid (severe) obesity due to excess calories; Z68.43 Body mass index [BMI] 50.0-59.9, adult

== ENCOUNTER → 2025-01-17 14:03 | Outpatient (BNVA) | payer OTHER, SELFPAY | PROVIDERS: PCP Internal Medicine; Visit Provider Internal Medicine | DX: K21.9 Gastro-esophageal reflux disease without esophagitis (principal); J45.20 Mild intermittent asthma, uncomplicated; E66.01 Morbid (severe) obesity due to excess calories; Z68.43 Body mass index [BMI] 50.0-59.9, adult | CPT/HCPCS: 96127; 99212 ==